=== PATIENT | female | born 1965 | race Caucasian/White ===

== ENCOUNTER → 2016-06-14 | Outpatient (CLI) | payer BC | END | disposition home or self-care (01) | LOC: LABWHC1 14:00 | PROVIDERS: ATTEND Internal Medicine Rheumatology | DX: M45.9 Ankylosing spondylitis of unspecified sites in spine (principal) | CPT/HCPCS: 36415; 85652; 86140 ==

== ENCOUNTER → 2018-06-07 | Outpatient (CLI) | payer BC ==
--- NOTE | 2018-06-07 16:39 | CT ---
"EXAMINATION TYPE: CT abdomen pelvis wo con DATE OF EXAM: 06/07/2018 COMPARISON: None INDICATION: Hematuria, nausea with vomiting DLP: 568.0 mGycm, Automated exposure control for dose reduction was used. CONTRAST: 0 mL of Isovue 300. Study performed without Oral Contrast TECHNIQUE: Axial images were obtained from above the diaphragm to the pubic rami in the axial plane a t 5 mm thick sections. Reconstructed images are reviewed on the computer in the coronal plane. FINDINGS: Limited CT sections are obtained the lung bases. The lung bases are clear. CT ABDOMEN: Liver: Normal Spleen: Normal Pancreas: Normal Adrenal glands: The adrenal glands are normal. Gallbladder: Normal Kidneys: No masses are evident. No hydronephrosis is present. There is a 4.6 there is mild right hy dronephrosis. Moderate right hydroureter is present. This extends to a mid right ureteral stone measu ring 0.5 cm. Cm cyst on the lateral mid left kidney measuring 16 Hounsfield units. No renal stones a re identified. Aorta: Vascular calcification is within the aorta. Inferior vena cava: Normal. CT PELVIS: Loops of bowel within the abdomen and pelvis are normal. Study is performed without oral contrast limiting bowel evaluation. Appendix: Normal as visualized in the midline. Urinary bladder: Unremarkable. Genitourinary structures: Uterus appears bulky. Adnexal regions appear clear. Small cyst on the right ovary may be present measuring 1.2 cm. Osseous structures: No suspicious lytic or sclerotic lesions. IMPRESSIONS: 1. Obstructing right mid ureteral stone measuring 0.5 cm. This is causing moderate right hydronephro sis. 2. Bulky uterus. Small right ovarian cyst may be present. 3. Left renal cyst. A Yellow level critical message alert has been initiated for Remi Gibson MD via the [employer] | Critical Results System on 06/07/2018 4:37 PM. This message alert has been sent to Remi Gibson MD via the preferences provided by the clinician for the receipt of Radiology Critical Findings. Oh ssage ID [id number]."
== END | disposition home or self-care (01) ==
LOC: RADCTMAIN 11:24
PROVIDERS: ATTEND Family Medicine
DX: N28.1 Cyst of kidney, acquired (principal); N83.201 Unspecified ovarian cyst, right side; N13.2 Hydronephrosis with renal and ureteral calculous obstruction; N85.2 Hypertrophy of uterus
CPT/HCPCS: 74176

== ENCOUNTER → 2018-06-09 | Outpatient (CLI) | payer BC ==
[2018-06-09 20:24] LABS: Anion Gap 7.8 mmol/L (4.00-12.00); Calcium 9.1 mg/dL (8.7-10.3); Carbon Dioxide 28.2 mmol/L (21.6-31.8); Potassium 3.7 mmol/L (3.5-5.5)
== END | disposition home or self-care (01) ==
LOC: LABWHC1 12:47
PROVIDERS: ATTEND Family Medicine
DX: N20.0 Calculus of kidney (principal)
CPT/HCPCS: 36415; 80048

== ENCOUNTER → 2018-06-13 | Outpatient (CLI) | payer BC ==
--- NOTE | 2018-06-13 12:29 | XR ---
Abdomen HISTORY: Right-sided kidney stone Frontal view the abdomen on [address] scan 06/07/2018 2 calcifications in the distribution of the proximal ureter present measuring approximately 3 to 4 mm similar to patient's CT scan findings. There is overlying bowel gas. No evident bowel obstruction. L monique bases not included on the exam. IMPRESSION: Proximal right ureteral calcifications are again noted in similar position.
== END ==
LOC: RADXRMAIN 10:09
PROVIDERS: ATTEND Urology
DX: N28.89 Other specified disorders of kidney and ureter (principal); N20.1 Calculus of ureter
CPT/HCPCS: 74018

== ENCOUNTER → 2018-06-14 | Outpatient (CLI) | payer BC ==
[2018-06-14 11:56] LABS: HCT 43.3 % (34.0-46.0); HGB 13.6 gm/dL (11.4-16.0); MCH 29.2 pg (25.0-35.0); MCHC 31.5 g/dL (31.0-37.0); MCV 92.8 fL (80.0-100.0); Mean Platelet Volume 7.6; Platelet Count 244 k/uL (150-450); RBC 4.67 m/uL (3.80-5.40); RDW 13.1 % (11.5-15.5); WBC 6.3 k/uL (3.8-10.6)
[2018-06-14 12:28] LABS: Basophils # (M) 0.06 k/uL (0-0.2); Eosinophils # (M) 0.44 k/uL (0-0.7); Lymphocytes # (M) 0.63 k/uL (1.0-4.8); Monocytes # (M) 1.01 k/uL (0-1.0); Neutrophils # (M) 4.16 k/uL (1.3-7.7); Neutrophils % (M) 66 %; Nucleated Red Blood Cells 0 /100 WBC (0-0); Total Cells Counted 100
[2018-06-15 03:30] LABS: Anion Gap 10.8 mmol/L (4.00-12.00); Calcium 9.2 mg/dL (8.7-10.3); Carbon Dioxide 28.2 mmol/L (21.6-31.8); Potassium 3.7 mmol/L (3.5-5.5)
== END | disposition home or self-care (01) ==
LOC: LABWHC1 10:51
PROVIDERS: ATTEND Urology
DX: N20.1 Calculus of ureter (principal)
CPT/HCPCS: 36415; 80048; 85025

== ENCOUNTER 2019-06-19 06:41 | Day surgery (SDC) | payer BC ==
[2019-06-18 10:10] VITALS: BMI 30.2
[~2019-06-19 06:41] MED LIST: LACTATED RINGERS 1,000 ML IV SCH; TOBRA-DEXAMET 0.3-0.1% OPHTH OINT 3.5 GM TUBE OPHTHALMIC ONE
[2019-06-19] MEDS: CYCLOPENTOLATE 1% OPHTH SOLN 2 ML BTL OP ONE ×3 (07:20→07:38)
[2019-06-19] MEDS: PHENYLEPHRINE 10% OPHTH DROPS 5 ML BTL OP ONE ×3 (07:23→07:41)
[2019-06-19 07:24] VITALS: TEMP 97.1
[2019-06-19] MEDS: KETOROLAC 0.5% OPHTH DROPS 5 ML BTL OP ONE ×3 (07:26→07:44)
[2019-06-19 07:40] LABS: Glucose,Whole Blood 95 mg/dL (75-99)
[2019-06-19] MEDS ORDERED: MIDAZOLAM 2 MG/2 ML VIAL ONE (08:07)
[2019-06-19] MEDS ORDERED: PROPOFOL 10 MG/ML 20 ML VIAL IV ONE (08:07)
[2019-06-19] MEDS ORDERED: BALANCED SALT IRRIG SOLN COMB2 15 ML IRRIG.SOLN INTRAOCULA ONE (08:16)
[2019-06-19] MEDS ORDERED: HYALURONATE SODIUM INTRAOCULAR 1 EACH SYRINGE (10MG/ML) INTRAOCULA ONE (08:16)
[2019-06-19] MEDS ORDERED: EPINEPHrine (PF) 0.5 ML in BALANCED SALT IRRIG SOLN COMB2 500 ML IRRIGATION ONE (08:17)
--- NOTE | 2019-06-19 08:33 | P.OP ---
Date of Procedure: 06/19/19 Procedure(s) Performed: PREOPERATIVE DIAGNOSIS: Cataract, right eye. POSTOPERATIVE DIAGNOSIS: Cataract, right eye. OPERATION: Phacoemulsification of cataract, intraocular lens placement, right eye. DESCRIPTION OF PROCEDURE: The patient was taken to the operating room. Intravenous Propofol was given so as to bring about sedation. The following mixture was given for local anesthesia: 5 mL of 2% lidocaine, 5 mL of 0.75% Marcaine, and 1 mL of Wydase. Approximately 4 mL was injected in the retrobu lbar space of the surgical eye. Additional 1 mL was then directed to the temporal area of the surgical eye. This was performed to allow adequate neurological block of the facial muscles. The patient was revived. The patient was prepped and draped in the usual sterile manner for the operative eye. A lid speculum was put into position. The conjunctiva was resected back from the limbus in the 12 o'clock position. Bleeding was controlled with electrocautery. A #69 blade was then used and a half-thickness scleral incision approximately 1-mm posterior to the limbus was made on bare sclera. This was shelved in the clear cornea using a crescent knife. Next a 15-degree blade was used to make a stab incision at the 3 o'clock position at the corneolimbal interface. A keratome blade was then used and the superior wound was extended into the anterior chamber. Viscoelastic was injected into the anterior chamber to maintain its form. A cystotome was used and a continuous anterior capsu lotomy was made. Hydrodissection of the lens cortex using a blunt cannula and BSS was performed. A phaco probe was then introduced and a groove extending from 12 to 6 o'clock in the lens was created. A Jer wand was used through the stab incision and used to perform a divide and conquer dismantling of the cataract. An irrigation aspiration probe was utilized and any residual cortex was removed from the eye. Again, viscoelastic was injected into the anterior chamber. An Ryland posterior chamber lens implant was placed in a delivery cartridge and injected into the anterior chamber. A Sinskey hook was utilized to spin the lens into position within the capsular bag. The irrigation and aspiration probe was again introduced and any residual viscoelastic was removed from the eye. BSS was injected via blunt canula into the limbal stab incision and the anterior chamber was re-inflated. The conjunctiva was reapproximated using electrocautery. One drop of 0.25% Timoptic was placed over the corneal along with an antibiotic ophthalmic ointment. Two sterile patches and a Dewey eye shield were taped into position. The patient was transported to the recovery room in stable condition. Pathology: none sent Condition: stable Disposition: same day
[2019-06-19 09:09] VITALS: RESP 16
[2019-06-19 09:10] VITALS: BP 107/70; PULSE 71
[2019-06-19] MEDS ORDERED: BUPIVACAINE (PF) 0.75% 5 ML, HYALURONIDASE, HUMAN RECOMB 150 UNIT, LIDOCAINE 2% (PF) 10... MISCELLANE ONE ×3 (23:00)
[2019-06-19] MEDS ORDERED: TIMOLOL 0.5% OPHTH DROPS 5 ML BTL OP ONE (23:00)
[2019-06-19] MEDS ORDERED: GENTAMICIN/PREDNISOL AC OPHTH OINT 3.5GM OPHTHALMIC ONE (23:00)
== END 2019-06-19 09:32 | disposition home or self-care (01) ==
LOC: OR 06:41
PROVIDERS: ATTEND Ophthalmology
DX: H25.043 Posterior subcapsular polar age-related cataract, bilateral (principal); M06.9 Rheumatoid arthritis, unspecified; M45.9 Ankylosing spondylitis of unspecified sites in spine; K51.90 Ulcerative colitis, unspecified, without complications; Z87.891 Personal history of nicotine dependence; Z79.52 Long term (current) use of systemic steroids; Z79.899 Other long term (current) drug therapy; Z98.891 History of uterine scar from previous surgery; Z83.3 Family history of diabetes mellitus; Z82.49 Family history of ischemic heart disease and other diseases of the circulatory system; Z80.9 Family history of malignant neoplasm, unspecified
CPT/HCPCS: 81025; 66984; V2632; J2250; J3470; J2001; J0171; J2704

== ENCOUNTER → 2019-10-17 | Outpatient (CLI) | payer BC ==
[2019-10-17 13:51] LABS: Basophils % (A) 1 %; Eosinophils # (A) 0.1 k/uL (0-0.7); Eosinophils % (A) 2 %; HCT 42.6 % (34.0-46.0); HGB 14.1 gm/dL (11.4-16.0); Lymphocytes # (A) 0.9 k/uL (1.0-4.8); Lymphocytes % (A) 12 %; MCV 90.8 fL (80.0-100.0); Mean Platelet Volume 7.8; Monocytes # (A) 0.6 k/uL (0-1.0); Monocytes % (A) 7 %; Neutrophils # (A) 5.8 k/uL (1.3-7.7); Neutrophils % (A) 75 %; Platelet Count 247 k/uL (150-450); RBC 4.69 m/uL (3.80-5.40); RDW 12.8 % (11.5-15.5); WBC 7.8 k/uL (3.8-10.6)
[2019-10-17 20:57] LABS: African American GFR (CKD) 116.3 (60.0-200.0); Albumin 4.1 g/dL (3.80-4.90); Albumin/Globulin Ratio 1.71 (1.60-3.17); Anion Gap 8.1 mmol/L (4.00-12.00); BUN/Creat Ratio 31.43 Ratio (12.00-20.00); Calcium 8.8 mg/dL (8.7-10.3); Carbon Dioxide 29.9 mmol/L (21.6-31.8); Globulin 2.4 g/dL (1.6-3.3); Non-African American GFR(CKD) 100.3 (60.0-200.0); Potassium 4.3 mmol/L (3.5-5.5); Total Bilirubin 0.4 mg/dL (0.2-1.2); Total Protein 6.5 g/dL (6.2-8.2)
== END | disposition home or self-care (01) ==
LOC: LABWHC1 12:13
PROVIDERS: ATTEND Specialist
DX: Z51.81 Encounter for therapeutic drug level monitoring (principal); Z79.899 Other long term (current) drug therapy
CPT/HCPCS: 36415; 80053; 85025

== ENCOUNTER → 2020-01-14 | Outpatient (CLI) | payer BC ==
--- NOTE | 2020-01-14 09:59 | US ---
EXAMINATION TYPE: US abdomen complete DATE OF EXAM: 01/14/2020 COMPARISON: 06/07/2028 CT scan CLINICAL HISTORY: 54-year-old female R10.33 PERIUMBILICAL PAIN. Generalized pain. NPO. TECHNIQUE: Multiple sonographic images of the abdomen are obtained. FINDINGS: EXAM MEASUREMENTS: Liver Length: 16.5 cm Gallbladder Wall: 0.2 cm CBD: 0.3 cm Spleen: 11.1 cm Right Kidney: 11.2 x 5.8 x 4.7 cm Left Kidney: 11.5 x 5.1 x 4.8 cm Pancreas: wnl Liver: wnl Gallbladder: wnl Evidence for sonographic Gongora's sign: neg CBD: wnl Spleen: wnl Right Kidney: wnl, no hydronephrosis. Left Kidney: lateral cystic appearing lesion seen - 5.7 x 5.8 x 5.5 cm as present on prior CT. No hy dronephrosis. Upper IVC: wnl Abd Aorta: No AAA visualized. Mild atherosclerotic irregularity mid and distally. IMPRESSION: 1. Benign 5.8 cm left lateral renal cyst. 2. Otherwise, no specific sonographic abnormality of the abdomen.
== END | disposition home or self-care (01) ==
LOC: RADUSWWP 08:38
PROVIDERS: ATTEND Internal Medicine Gastroenterology
DX: N28.1 Cyst of kidney, acquired (principal)
CPT/HCPCS: 76700

== ENCOUNTER → 2020-02-18 | Outpatient (CLI) | payer BC ==
[2020-02-18 18:48] LABS: Estradiol 44.8 pg/mL
== END | disposition home or self-care (01) ==
LOC: LABWHC1 09:55
PROVIDERS: ATTEND Obstetrics & Gynecology
DX: N95.1 Menopausal and female climacteric states (principal); R53.83 Other fatigue
CPT/HCPCS: 36415; 82670; 83001; 84144; 84403

== ENCOUNTER → 2020-04-08 | Outpatient (CLI) | payer MEDICARE ==
[2020-04-08 12:24] LABS: Basophils # (A) 0.1 k/uL (0-0.2); Basophils % (A) 1 %; Eosinophils # (A) 0.2 k/uL (0-0.7); Eosinophils % (A) 2 %; HCT 43.4 % (34.0-46.0); HGB 14.2 gm/dL (11.4-16.0); Lymphocytes # (A) 0.8 k/uL (1.0-4.8); Lymphocytes % (A) 8 %; MCH 29.2 pg (25.0-35.0); MCHC 32.6 g/dL (31.0-37.0); MCV 89.3 fL (80.0-100.0); Mean Platelet Volume 7.3; Monocytes % (A) 9 %; Neutrophils # (A) 8.1 k/uL (1.3-7.7); Neutrophils % (A) 76 %; Platelet Count 263 k/uL (150-450); RBC 4.86 m/uL (3.80-5.40); RDW 13.4 % (11.5-15.5); WBC 10.6 k/uL (3.8-10.6)
[2020-04-08 21:37] LABS: African American GFR (CKD) 115.5 (60.0-200.0); Non-African American GFR(CKD) 99.6 (60.0-200.0)
== END | disposition home or self-care (01) ==
LOC: LABWHC1 11:15
PROVIDERS: ATTEND Specialist
DX: Z51.81 Encounter for therapeutic drug level monitoring (principal); Z79.899 Other long term (current) drug therapy
CPT/HCPCS: 36415; 82565; 84450; 84460; 84520; 85025

== ENCOUNTER → 2020-05-29 | Outpatient (CLI) | payer MEDICARE ==
[2020-05-29 19:54] LABS: Basophils # (A) 0.06 X 10*3/uL (0.00-0.10); Basophils % (A) 0.9 %; Eosinophils # (A) 0.19 X 10*3/uL (0.04-0.35); HCT 44.6 % (37.2-46.3); HGB 13.9 g/dL (12.0-15.0); Lymphocytes # (A) 1.38 X 10*3/uL (0.90-5.00); Lymphocytes % (A) 21.7 %; MCH 28.7 pg (27.0-32.0); MCHC 31.2 g/dL (32.0-37.0); Mean Platelet Volume 11.8 fL (9.5-12.2); Monocytes # (A) 0.83 X 10*3/uL (0.20-1.00); Neutrophils % (A) 61.2 %; Platelet Count 244 X 10*3/uL (140-440); RBC 4.85 X 10*6/uL (4.10-5.20); RDW 14.7 % (11.5-14.5); WBC 6.37 X 10*3/uL (4.50-10.00)
[2020-05-30 00:18] LABS: African American GFR (CKD) 98.2 (60.0-200.0); Albumin 4.1 g/dL (3.80-4.90); Albumin/Globulin Ratio 1.37 (1.60-3.17); BUN/Creat Ratio 26.25 Ratio (12.00-20.00); Calcium 9.6 mg/dL (8.7-10.3); Non-African American GFR(CKD) 84.8 (60.0-200.0); Potassium 4.1 mmol/L (3.5-5.5); Total Bilirubin 0.5 mg/dL (0.3-1.2); Total Protein 7.1 g/dL (6.2-8.2)
== END | disposition home or self-care (01) ==
LOC: LABWHC1 11:10
PROVIDERS: ATTEND Specialist
DX: M12.80 Other specific arthropathies, not elsewhere classified, unspecified site (principal); Z79.899 Other long term (current) drug therapy
CPT/HCPCS: 36415; 80053; 85025

== ENCOUNTER → 2020-10-21 | Outpatient (CLI) | payer MEDICARE ==
[2020-10-21 19:26] LABS: Basophils # (A) 0.06 X 10*3/uL (0.00-0.10); Basophils % (A) 0.9 %; Eosinophils # (A) 0.17 X 10*3/uL (0.04-0.35); Eosinophils % (A) 2.5 %; HCT 42.9 % (37.2-46.3); HGB 13.6 g/dL (12.0-15.0); Lymphocytes % (A) 24.8 %; MCH 29.6 pg (27.0-32.0); MCHC 31.7 g/dL (32.0-37.0); MCV 93.5 fL (80.0-97.0); Monocytes # (A) 0.67 X 10*3/uL (0.20-1.00); Monocytes % (A) 9.8 %; Neutrophils # (A) 4.24 X 10*3/uL (1.80-7.70); Neutrophils % (A) 61.7 %; Platelet Count 247 X 10*3/uL (140-440); RBC 4.59 X 10*6/uL (4.10-5.20); RDW 13.5 % (11.5-14.5); WBC 6.86 X 10*3/uL (4.50-10.00)
[2020-10-22 01:12] LABS: African American GFR (CKD) 98.2 (60.0-200.0); Non-African American GFR(CKD) 84.8 (60.0-200.0)
== END | disposition home or self-care (01) ==
LOC: LABWHC1 11:10
PROVIDERS: ATTEND Specialist
DX: Z79.899 Other long term (current) drug therapy (principal)
CPT/HCPCS: 36415; 82565; 84450; 84460; 84520; 85025

== ENCOUNTER → 2021-02-17 | Outpatient (CLI) | payer MEDICARE ==
[2021-02-17 15:16] LABS: Basophils # (A) 0.06 X 10*3/uL (0.00-0.10); Eosinophils # (A) 0.19 X 10*3/uL (0.04-0.35); Eosinophils % (A) 3.2 %; HCT 41.5 % (37.2-46.3); HGB 13.4 g/dL (12.0-15.0); Lymphocytes % (A) 25.3 %; MCH 30.1 pg (27.0-32.0); MCHC 32.3 g/dL (32.0-37.0); MCV 93.3 fL (80.0-97.0); Mean Platelet Volume 11.2 fL (9.5-12.2); Monocytes # (A) 0.76 X 10*3/uL (0.20-1.00); Monocytes % (A) 12.8 %; Neutrophils # (A) 3.41 X 10*3/uL (1.80-7.70); Neutrophils % (A) 57.5 %; Platelet Count 261 X 10*3/uL (140-440); RBC 4.45 X 10*6/uL (4.10-5.20); RDW 13.1 % (11.5-14.5); WBC 5.93 X 10*3/uL (4.50-10.00)
[2021-02-17 18:35] LABS: African American GFR (CKD) 120.6 (60.0-200.0); Blood Urea Nitrogen 21.1 mg/dL (9.0-27.0); Non-African American GFR(CKD) 104.1 (60.0-200.0)
== END | disposition home or self-care (01) ==
LOC: LABWHC1 09:54
PROVIDERS: ATTEND Specialist
DX: Z79.899 Other long term (current) drug therapy (principal)
CPT/HCPCS: 36415; 82565; 84450; 84460; 84520; 85025

== ENCOUNTER → 2021-03-05 | Outpatient (CLI) | payer MEDICARE ==
[2021-03-05 19:41] LABS: Hepatitis B Core IgM Nonreactive (Nonreactive); Hepatitis B Surface AB- Quant 3.5 mIU/mL; Hepatitis B Surface Antibody Nonreactive (Nonreactive); Hepatitis B Surface Antigen Nonreactive (Nonreactive); Hepatitis C IgG Antibody Nonreactive (Nonreactive)
[2021-03-05 19:46] LABS: Basophils # (A) 0.07 X 10*3/uL (0.00-0.10); Eosinophils # (A) 0.18 X 10*3/uL (0.04-0.35); Eosinophils % (A) 2.6 %; HGB 13.5 g/dL (12.0-15.0); Lymphocytes # (A) 1.81 X 10*3/uL (0.90-5.00); Lymphocytes % (A) 26.5 %; MCH 29.3 pg (27.0-32.0); MCHC 31.4 g/dL (32.0-37.0); MCV 93.5 fL (80.0-97.0); Monocytes # (A) 0.71 X 10*3/uL (0.20-1.00); Monocytes % (A) 10.4 %; Neutrophils # (A) 4.05 X 10*3/uL (1.80-7.70); Neutrophils % (A) 59.2 %; Platelet Count 254 X 10*3/uL (140-440); RDW 13.4 % (11.5-14.5); WBC 6.84 X 10*3/uL (4.50-10.00)
[2021-03-05 19:49] LABS: ALT 20 U/L (8-44); AST 22 U/L (13-35); African American GFR (CKD) 114.6 (60.0-200.0); Albumin 4.5 g/dL (3.8-4.9); Albumin/Globulin Ratio 2.05 (1.60-3.17); Alkaline Phosphatase 63 U/L (41-126); BUN/Creat Ratio 23.57 Ratio (12.00-20.00); Blood Urea Nitrogen 16.5 mg/dL (9.0-27.0); Calcium 8.7 mg/dL (8.7-10.3); Carbon Dioxide 26.2 mmol/L (20.0-27.5); Chloride 105 mmol/L (96-109); Globulin 2.2 g/dL (1.6-3.3); Glucose 95 mg/dL (70-110); Non-African American GFR(CKD) 98.9 (60.0-200.0); Potassium 3.7 mmol/L (3.5-5.5); Sodium 143 mmol/L (135-145); Total Protein 6.7 g/dL (6.2-8.2)
[2021-03-05 20:41] LABS: C Reactive Protein <0.30 mg/dL (0.00-0.80)
[2021-03-05 23:01] LABS: Erythrocyte Sedimentation Rate 6 mm/Hr (0-30)
== END | disposition home or self-care (01) ==
LOC: LABWHC1 11:05
PROVIDERS: ATTEND Specialist
DX: Z79.899 Other long term (current) drug therapy (principal)
CPT/HCPCS: 36415; 80053; 85025; 85652; 86140; 86480; 86704; 86705; 86706; 86803; 87340

== ENCOUNTER → 2021-06-03 | Outpatient (CLI) | payer MEDICARE ==
[2021-06-03 15:00] LABS: Basophils # (A) 0.08 X 10*3/uL (0.00-0.10); Basophils % (A) 1.1 %; Eosinophils # (A) 0.13 X 10*3/uL (0.04-0.35); Eosinophils % (A) 1.8 %; HCT 42.7 % (37.2-46.3); HGB 13.4 g/dL (12.0-15.0); Immature Grans, Automated 0.3 %; Lymphocytes # (A) 0.93 X 10*3/uL (0.90-5.00); Lymphocytes % (A) 12.6 %; MCH 29.6 pg (27.0-32.0); MCHC 31.4 g/dL (32.0-37.0); MCV 94.3 fL (80.0-97.0); Mean Platelet Volume 11.3 fL (9.5-12.2); Monocytes # (A) 0.52 X 10*3/uL (0.20-1.00); NRBC Per 100 WBC 0 /100 WBCS (0.0-0.0); Neutrophils # (A) 5.73 X 10*3/uL (1.80-7.70); Neutrophils % (A) 77.2 %; Platelet Count 262 X 10*3/uL (140-440); RBC 4.53 X 10*6/uL (4.10-5.20); WBC 7.41 X 10*3/uL (4.50-10.00)
[2021-06-03 15:07] LABS: African American GFR (CKD) 114.6 (60.0-200.0); Blood Urea Nitrogen 18.4 mg/dL (9.0-27.0); Non-African American GFR(CKD) 98.9 (60.0-200.0)
== END | disposition home or self-care (01) ==
LOC: LABWHC1 10:33
PROVIDERS: ATTEND Specialist
DX: Z79.899 Other long term (current) drug therapy (principal)
CPT/HCPCS: 36415; 82565; 84450; 84460; 84520; 85025

== ENCOUNTER → 2021-06-16 | Outpatient (CLI) | payer MEDICARE ==
[2021-06-17 05:29] LABS: Anti-Smith Ab Interp NEGATIVE (NEGATIVE); DNA Double-Stranded NEGATIVE (NEGATIVE); Scleroderma SC-70 Ab <0.2 AI
== END | disposition home or self-care (01) ==
LOC: LABWHC1 14:53
PROVIDERS: ATTEND Specialist
DX: M12.80 Other specific arthropathies, not elsewhere classified, unspecified site (principal)
CPT/HCPCS: 36415; 86038; 86160; 86225; 86235

== ENCOUNTER → 2021-10-07 | Outpatient (CLI) | payer MEDICARE ==
[2021-10-07 19:41] LABS: Cyclic Citrull Pep IgG Unit <0.5 U/mL; Cyclic Citrullinated Pep IgG NEGATIVE (NEGATIVE)
[2021-10-07 21:21] LABS: Anti-Smith Ab Interp NEGATIVE (NEGATIVE); DNA Double-Stranded NEGATIVE (NEGATIVE); Scleroderma SC-70 Ab <0.2 AI
== END | disposition home or self-care (01) ==
LOC: LABWHC1 14:07
PROVIDERS: ATTEND Specialist
DX: M12.80 Other specific arthropathies, not elsewhere classified, unspecified site (principal); R76.8 Other specified abnormal immunological findings in serum
CPT/HCPCS: 36415; 83516; 86038; 86160; 86200; 86225; 86235; 86480

== ENCOUNTER → 2021-12-21 | Outpatient (CLI) | payer MEDICARE ==
[2021-12-21 18:08] LABS: Basophils # (A) 0.05 X 10*3/uL (0.00-0.10); Basophils % (A) 0.7 %; Eosinophils # (A) 0.29 X 10*3/uL (0.04-0.35); Eosinophils % (A) 4.3 %; HCT 41.2 % (37.2-46.3); HGB 13.3 g/dL (12.0-15.0); Immature Grans, Automated 0.3 %; Lymphocytes # (A) 1.38 X 10*3/uL (0.90-5.00); Lymphocytes % (A) 20.6 %; MCH 29.4 pg (27.0-32.0); MCHC 32.3 g/dL (32.0-37.0); MCV 91.2 fL (80.0-97.0); Mean Platelet Volume 11.5 fL (9.5-12.2); Monocytes # (A) 0.56 X 10*3/uL (0.20-1.00); Monocytes % (A) 8.4 %; NRBC Per 100 WBC 0 /100 WBCS (0.0-0.0); Neutrophils # (A) 4.39 X 10*3/uL (1.80-7.70); Neutrophils % (A) 65.7 %; Platelet Count 264 X 10*3/uL (140-440); RBC 4.52 X 10*6/uL (4.10-5.20); RDW 13.4 % (11.5-14.5); WBC 6.69 X 10*3/uL (4.50-10.00)
[2021-12-21 18:22] LABS: ALT 14 U/L (8-44); AST 19 U/L (13-35); African American GFR (CKD) 114.9 (60.0-200.0); BUN/Creat Ratio 14.16 Ratio (12.00-20.00); Blood Urea Nitrogen 9.6 mg/dL (9.0-27.0); Calcium 9.5 mg/dL (8.7-10.3); Carbon Dioxide 29.5 mmol/L (20.0-27.5); Chloride 105 mmol/L (96-109); Chol/HDL Ratio 3.39 Ratio; Glucose 99 mg/dL (70-110); LDL Cholesterol,Calculated 128.1 mg/dL (0.0-131.0); Non-African American GFR(CKD) 99.1 (60.0-200.0); Potassium 4.3 mmol/L (3.5-5.5); Sodium 145 mmol/L (135-145); VLDL Calculation 17.84 mg/dL (5.00-40.00)
[2021-12-21 22:29] LABS: Appearance,Urine Clear (Clear); Bilirubin,Urine Negative (Negative); Blood,Urine Negative (Negative); Color,Urine Yellow (Yellow); Ketones,Urine Trace mg/dL (Negative); Nitrite,Urine Negative (Negative); PH, Urine 6.5 (5.0-8.0); Specific Gravity,Urine 1.016 (1.001-1.030); Urobilinogen,Urine 0.2 (0.2,1.0)
[2021-12-21 22:34] LABS: Bacteria,Urine Trace /HPF (None Seen)
== END | disposition home or self-care (01) ==
LOC: LABPAT 11:10
PROVIDERS: ATTEND Urology
DX: Z01.812 Encounter for preprocedural laboratory examination (principal); E78.2 Mixed hyperlipidemia; N20.0 Calculus of kidney
CPT/HCPCS: 80048; 80061; 81001; 84443; 84450; 84460; 85025; 87086

== ENCOUNTER 2022-01-08 12:04 | Day surgery (SDC) | payer MEDICARE ==
[2022-01-06 15:19] VITALS: BMI 30.6
--- NOTE | 2022-01-08 10:47 | P.HPIHPCON ---
History of Present Illness H&P Date: 01/08/22 Chief Complaint: Right-sided renal stone This is a 56-year-old female history of a 1.2 cm right-sided renal pelvis stone, she is symptomatic from her stone. Discussed with her the option of a ESWL versus ureteroscopy with holmium laser. Risk and benefit of each approach was discussed in detail. She agreed to proceed with right-sided ureteroscopy with holmium laser. Discussed with her the risk which include but not limited to bleeding, infection, ureteral injury. Discussed also risks of anesthesia. she understood all the risk and agreed to proceed Consent for Procedure: I have explained the operation/procedure to the patient, including the risks, benefits, side effects, alternative therapies (including not receiving the proposed treatment or service), the likelihood of the patient achieving his/her goals, and potential recuperation problems for the procedure/sedation/analgesia, as well as any blood products, if indicated. I also explained to the patient the risks, benefits and side effects of the alternatives, as well as the risks related to not receiving the proposed procedure, care, treatment, or services. Past Medical History Past Medical History: Fibromyalgia, Hyperlipidemia Additional Past Medical History / Comment(s): 2 herniated disks in neck, hx. migraines, ulcerative colitis , ankylosing spondylitis, hx kidney stones,"heart palpiations" History of Any Multi-Drug Resistant Organisms: None Reported Past Surgical History: Section, Orthopedic Surgery, Tubal Ligation Additional Past Surgical History / Comment(s): bal knee arthroscopy, surgery to remove kidney stones Past Anesthesia/Blood Transfusion Reactions: Previous Problems w/ Anesthesia Additional Past Anesthesia/Blood Transfusion Reaction / Comment(s): had spinal with C/S and could feel everything and ended needing a general Smoking Status: Former smoker - Past Family History Mother Family Medical History: Cancer Medications and Allergies Home Medications Medication Instructions Recorded Confirmed Type Adalimumab [Humira] 40 mg SQ FR 05/18/19 01/06/22 History Mesalamine [Lialda] 4.8 gm PO AC-SUPPER 05/18/19 01/06/22 History DULoxetine HCL [Cymbalta] 30 mg PO BID 06/18/19 01/06/22 History Gabapentin [Neurontin] 300 mg PO HS 06/18/19 01/06/22 History Leflunomide [Arava] 20 mg PO DAILY 06/18/19 01/06/22 History cycloSPORINE 0.05% OPHTH SOLN 1 applicator BOTH EYES Q12H 06/18/19 01/06/22 History [Restasis] ALPRAZolam [Xanax] 0.5 mg PO BID PRN 01/06/22 01/06/22 History Black Cohash Tab 80 mg PO QAM 01/06/22 01/06/22 History Metoprolol Succinate (ER) [Toprol 25 mg PO DAILY 01/06/22 01/06/22 History Xl] Allergies Allergy/AdvReac Type Severity Reaction Status Date / Time bupropion HCl Allergy Rash/Hives Verified 01/06/22 15:05 [From Wellbutrin] Assessment and Plan Assessment: Or for right-sided ureteroscopy with holmium laser lithotripsy, stone basketing and stent insertion
[~2022-01-08 12:04] MED LIST changes: +DEXAMETHASONE SOD PHOSPHATE 4 MG/ML 1 ML VIAL IV ONE; +HYDROmorphone 0.5 MG/0.5 ML SYRINGE IVP PRN; +LIDOCAINE 1% (10MG/ML) FOR IV START INTRADERMA PRN; +ONDANSETRON 4 MG/2 ML VIAL IVP ONE; +SCOPOLAMINE 1 MG/72 HR PATCH TRANSDERM ONE; -TOBRA-DEXAMET 0.3-0.1% OPHTH OINT 3.5 GM TUBE OPHTHALMIC ONE
--- NOTE | 2022-01-08 12:20 | XR ---
EXAMINATION TYPE: XR KUB DATE OF EXAM: 01/08/2022 COMPARISON: NONE HISTORY: Pain TECHNIQUE: One view abdominal series FINDINGS: The osseous structures are intact. The bowel gas pattern is nonspecific. There is a 1.3 cm right tiffanie al calculus. Left kidney is limited by bowel content but no obvious calcifications.. IMPRESSION: 1. There is a 1.3 cm right renal calculus.
[2022-01-08] MEDS ORDERED: LIDOCAINE 2% INJ 20 MG/ML (2 ML VIAL) ONE (15:00)
[2022-01-08] MEDS ORDERED: fentaNYL (PF) 50 MCG/ML 2 ML AMP ONE (15:00)
[2022-01-08] MEDS ORDERED: MIDAZOLAM 2 MG/2 ML VIAL ONE (15:00)
[2022-01-08] MEDS ORDERED: PROPOFOL 10 MG/ML 20 ML VIAL IV ONE (15:00)
[2022-01-08 16:36] VITALS: TEMP 96.8
--- NOTE | 2022-01-08 17:01 | P.OP ---
Date of Procedure: 01/08/22 Preoperative Diagnosis: Right renal stone Postoperative Diagnosis: Same Procedure(s) Performed: Cystoscopy, right ureteroscopy, holmium laser lithotripsy, stone basketing and stent insertion Implants: 6-Ghanaian by 22 cm stent in the right ureter Anesthesia: MONA Surgeon: Axel Medrano Estimated Blood Loss (ml): 5 Pathology: other (Right renal stone) Condition: stable Disposition: PACU Indications for Procedure: This is a 56-year-old female history of a 1.2 cm right-sided renal pelvis stone, she is symptomatic from her stone. Discussed with her the option of a ESWL versus ureteroscopy with holmium laser. Risk and benefit of each approach was discussed in detail. She agreed to proceed with right-sided ureteroscopy with holmium laser. Discussed with her the risk which include but not limited to bleeding, infection, ureteral injury. Discussed also risks of anesthesia. she understood all the risk and agreed to proceed Operative Findings: Large stone in the right renal pelvis Description of Procedure: Patient brought to the operating room, general anesthesia was induced. She was prepped and draped so fashion a placement dorsal lithotomy position. Cystoscopy fitted with a 21-Ghanaian sheath was inserted per urethra, cystoscopy was performed which showed no abnormality within the bladder. Attention was then carried to the right ureteral orifice which was intubated with a sensor wire. Next under fluoroscopy 1113 Ghanaian access sheath was passed over the wire and into the proximal ureter. The flexible ureteroscope was inserted through the access sheath, renoscopy was performed which showed a large stone in the renal pelvis. Using the holmium laser the stone was dusted, sizable fragments were removed and sent for analysis. Repeat renoscopy showed no sizable stone or injury to the kidney. Pullback ureteroscopy was performed which showed no injury to the ureter and ureteral fragments. As the ureteroscope was withdrawn, a sensor wire was advanced through. Next a ureteral stent was passed over the wire, the proximal curl was visualized on fluoroscopy and the distal curl was visualized using the cystoscope. The bladder was emptied at the end of the case. Patient tolerated the procedure well was taken to recovery in stable condition
[2022-01-08 17:37] VITALS: PULSE 99; RESP 16
[2022-01-08 17:49] VITALS: BP 144/78
--- NOTE | 2022-01-09 09:55 | FL ---
Intraoperative/procedural fluoroscopic services were provided. Total fluoroscopy time is 26 seconds w ith a total of 1 submitted images to PACS. Please see the operative/procedural note for further detai ls.
== END 2022-01-08 18:13 | disposition home or self-care (01) ==
LOC: OR 12:04
PROVIDERS: ATTEND Urology
DX: N20.0 Calculus of kidney (principal); E78.5 Hyperlipidemia, unspecified; M79.7 Fibromyalgia; Z87.891 Personal history of nicotine dependence; Z88.8 Allergy status to other drugs, medicaments and biological substances; Z79.890 Hormone replacement therapy; Z79.899 Other long term (current) drug therapy; Z87.19 Personal history of other diseases of the digestive system
CPT/HCPCS: 52356; 82365; 74018; C2625; C1769; J2250; J1100; J0690; J2405; J3010; J2704; J2001

== ENCOUNTER → 2022-03-19 | Outpatient (CLI) | payer MEDICARE ==
[2022-03-19 18:51] LABS: Basophils # (A) 0.08 X 10*3/uL (0.00-0.10); Basophils % (A) 0.9 %; Eosinophils # (A) 0.14 X 10*3/uL (0.04-0.35); Eosinophils % (A) 1.6 %; HCT 45.9 % (37.2-46.3); Immature Grans, Automated 0.6 %; Lymphocytes # (A) 1.39 X 10*3/uL (0.90-5.00); Lymphocytes % (A) 15.6 %; MCH 28.1 pg (27.0-32.0); MCHC 30.5 g/dL (32.0-37.0); Mean Platelet Volume 10.5 fL (9.5-12.2); Monocytes % (A) 6.7 %; NRBC Per 100 WBC 0 /100 WBCS (0.0-0.0); Neutrophils # (A) 6.65 X 10*3/uL (1.80-7.70); Neutrophils % (A) 74.6 %; Platelet Count 303 X 10*3/uL (140-440); RBC 4.99 X 10*6/uL (4.10-5.20); RDW 13.9 % (11.5-14.5); WBC 8.91 X 10*3/uL (4.50-10.00)
[2022-03-19 19:09] LABS: African American GFR (CKD) 90.2 (60.0-200.0); Non-African American GFR(CKD) 77.8 (60.0-200.0)
== END | disposition home or self-care (01) ==
LOC: LABWHC1 10:37
PROVIDERS: ATTEND Specialist
DX: Z79.899 Other long term (current) drug therapy (principal)
CPT/HCPCS: 36415; 82565; 84450; 84460; 84520; 85025

== ENCOUNTER → 2023-08-10 | Outpatient (CLI) | payer MEDICARE ==
[2023-08-10 19:01] LABS: Basophils # (A) 0.08 X 10*3/uL (0.00-0.10); Basophils % (A) 0.9 %; Eosinophils # (A) 0.11 X 10*3/uL (0.04-0.35); Eosinophils % (A) 1.2 %; HCT 45.4 % (37.2-46.3); HGB 15.1 g/dL (12.0-15.0); Lymphocytes # (A) 2.22 X 10*3/uL (0.90-5.00); MCH 30.8 pg (27.0-32.0); MCHC 33.3 g/dL (32.0-37.0); MCV 92.7 FL (80.0-97.0); Mean Platelet Volume 11.2 FL (9.5-12.2); Monocytes # (A) 0.71 X 10*3/uL (0.20-1.00); NRBC Per 100 WBC 0 X 10*3/uL (0.00-0.01); Neutrophils # (A) 5.74 X 10*3/uL (1.80-7.70); Neutrophils % (A) 64.7 %; Platelet Count 277 X 10*3/uL (140-440); RDW 13.2 % (11.5-14.5); WBC 8.88 X 10*3/uL (4.50-10.00)
[2023-08-10 19:22] LABS: ALT 11 U/L (8-44); AST 18 U/L (13-35); Blood Urea Nitrogen 20.5 mg/dL (9.0-27.0)
== END | disposition home or self-care (01) ==
LOC: LABWHC1 15:52
PROVIDERS: ATTEND Specialist
DX: Z51.81 Encounter for therapeutic drug level monitoring (principal); Z79.899 Other long term (current) drug therapy
CPT/HCPCS: 36415; 82565; 84450; 84460; 84520; 85025; 86480

== ENCOUNTER 2023-08-19 11:22 | Emergency (ER) | payer MEDICARE ==
[2023-08-19 11:29] VITALS: RESP 18
--- NOTE | 2023-08-19 11:37 | ED ---
Lower Extremity Injury HPI - General Chief Complaint: Extremity Injury, Lower Stated Complaint: Fall-L knee injury Time Seen by Provider: 08/19/23 11:35 Source: patient, RN notes reviewed Mode of arrival: ambulatory Limitations: no limitations - History of Present Illness Initial Comments: 57-year-old female presented to the ER with a chief complaint of left knee injury. Patient reports yesterday she was attempting to pull a command strip off of the wall. She states she was on a ladder approximately 3 feet off the ground. She states the strip pulled father at the unexpected and she accidentally fell. She states that her left knee "buckled forward". She denies any head injury, loss consciousness or blood thinner use. Denies any other injuries. She has been taking [id number] ibuprofen without relief. She states has been extremely painful to walk and her knee is swollen. Other complaints at this time. - Related Data Home Medications Medication Instructions Recorded Confirmed Adalimumab [Humira] 40 mg SQ FR 05/18/19 01/08/22 Mesalamine [Lialda] 4.8 gm PO AC-SUPPER 05/18/19 01/08/22 DULoxetine HCL [Cymbalta] 30 mg PO BID 06/18/19 01/08/22 Gabapentin [Neurontin] 300 mg PO HS 06/18/19 01/08/22 Leflunomide [Arava] 20 mg PO DAILY 06/18/19 01/08/22 cycloSPORINE 0.05% OPHTH SOLN 1 applicator BOTH EYES Q12H 06/18/19 01/08/22 [Restasis] ALPRAZolam [Xanax] 0.5 mg PO BID PRN 01/06/22 01/08/22 Black Cohash Tab 80 mg PO QAM 01/06/22 01/08/22 Metoprolol Succinate (ER) [Toprol 25 mg PO DAILY 01/06/22 01/08/22 Xl] Previous Rx's Medication Instructions Recorded Cephalexin [Keflex] 500 mg PO Q8HR #15 cap 01/08/22 Ketorolac [Toradol] 10 mg PO Q6HR PRN #15 tab 01/08/22 Acetaminophen-Codeine 300-30mg 1 tab PO Q4H PRN #20 tablet 08/19/23 [Tylenol #3] Allergies Allergy/AdvReac Type Severity Reaction Status Date / Time bupropion HCl Allergy Rash/Hives Verified 08/19/23 11:26 [From Wellbutrin] Review of Systems ROS Statement: Those systems with pertinent positive or pertinent negative responses have been documented in the HPI. ROS Other: All systems not noted in ROS Statement are negative. Past Medical History Past Medical History: Fibromyalgia, Hyperlipidemia, Osteoarthritis (OA) Additional Past Medical History / Comment(s): 2 herniated disks in neck, hx. migraines, ulcerative colitis , ankylosing spondylitis, hx kidney stones, History of Any Multi-Drug Resistant Organisms: None Reported Past Surgical History: Section, Orthopedic Surgery, Tubal Ligation Additional Past Surgical History / Comment(s): rt knee surgery, left knee arthroscopy, surgery to remove kidney stones Past Anesthesia/Blood Transfusion Reactions: No Reported Reaction Additional Past Anesthesia/Blood Transfusion Reaction / Comment(s): had spinal with C/S and could feel everything and ended needing a general Past Psychological History: No Psychological Hx Reported Smoking Status: Former smoker Past Alcohol Use History: None Reported Past Drug Use History: None Reported - Past Family History Mother Family Medical History: Cancer General Exam Limitations: no limitations General appearance: alert, in no apparent distress Head exam: Present: atraumatic, normocephalic, normal inspection Eye exam: Present: normal appearance, PERRL, EOMI. Absent: scleral icterus, conjunctival injection, periorbital swelling Pupils: Present: normal accommodation Neck exam: Present: normal inspection. Absent: tenderness, meningismus, lymphadenopathy Respiratory exam: Present: normal lung sounds bilaterally. Absent: respiratory distress, wheezes, rales, rhonchi, stridor Cardiovascular Exam: Present: regular rate, normal rhythm, normal heart sounds. Absent: systolic murmur, diastolic murmur, rubs, gallop, clicks Extremities exam: Present: normal inspection, full ROM, tenderness (Tibial tuberosity. 2+ dorsalis pedis pulse left. Intact sensation. Equal dorsiflexion and plantarflexion. Limited flexion and knee due to pain. Edema to left knee), normal capillary refill. Absent: pedal edema, joint swelling, calf tenderness Back exam: Present: normal inspection Skin exam: Present: warm, dry, intact, normal color. Absent: rash Course Vital Signs 08/19/23 11:23 Temperature 98.4 F Pulse Rate 89 Respiratory 18 Rate Blood Pressure 148/75 O2 Sat by Pulse 97 Oximetry Medical Decision Making - Medical Decision Making Was pt. sent in by a medical professional or institution ([facility], [facility], urgent care, hospital, or halfway...) When possible be specific @ -No Did you speak to anyone other than the patient for history (EMS, parent, family, police, friend...)? What history was obtained from this source @ -No Did you review nursing and triage notes (agree or disagree)? Why? @ -I reviewed and agree with nursing and triage notes Were old charts reviewed (outside hosp., previous admission, EMS record, old EKG, old radiological studies, urgent care reports/EKG's, halfway records)? Report findings @ -No old charts were reviewed Differential Diagnosis (chest pain, altered mental status, abdominal pain women, abdominal pain men, vaginal bleeding, weakness, fever, dyspnea, syncope, headache, dizziness, GI bleed, back pain, seizure, CVA, palpatations, mental health, musculoskeletal)? @ -Differential Musculoskeletal: Muscular strain, contusion, ligament sprain, fracture, arthritis, septic arthritis, bursitis, cellulitis, muscle spasm, nerve compression, DVT, arterial occlusion, herpes zoster, electrolyte abnormality, tumor.... This is not meant to be in all inclusive list EKG interpreted by me (3pts min.). @ -None X-rays interpreted by me (1pt min.). @ -Left knee x-ray interpreted by me significant for a posterior tibial plateau fracture. CT interpreted by me (1pt min.). @ -None done U/S interpreted by me (1pt. min.). @ -None done What testing was considered but not performed or refused? (CT, X-rays, U/S, labs)? Why? @ -None What meds were considered but not given or refused? Why? @ -Patient refused analgesic medication. Did you discuss the management of the patient with other professionals (professionals i.e. [facility], [facility], lab, RT, psych nurse, administrator social welfare, activities assistant, teacher, title officer, employment evaluator/case manager)? Give summary @ -No Was smoking cessation discussed for >3mins.? @ -No Was critical care preformed (if so, how long)? @ -No Were there social determinants of health that impacted care today? How? (Homelessness, low income, unemployed, alcoholism, drug addiction, transportation, low edu. Level, literacy, decrease access to med. care, halfway, rehab)? @ -No Was there de-escalation of care discussed even if they declined (Discuss DNR or withdrawal of care, Hospice)? DNR status @ -No What co-morbidities impacted this encounter? (DM, HTN, Smoking, COPD, CAD, Cancer, CVA, ARF, Chemo, Hep., AIDS, mental health diagnosis, sleep apnea, morbid obesity)? @ -None Was patient admitted / discharged? Hospital course, mention meds given and route, prescriptions, significant lab abnormalities, going to OR and other pertinent info. @ -Discharge. 57-year-old female presenting to the ER with a chief complaint of left knee injury. History and physical exam completed. Vitals stable. Left lower extremity neurovascular intact. Patient has full active range of motion with extreme pain. X-rays obtained significant for a posterior tibial plateau fracture. Patient refused analgesic medication as she recently took ibuprofen prior to arrival. Results discussed with patient, all questions answered. Patient placed in knee immobilizer and advised to remain nonweightbearing. Patient states she has crutches at home. Advised close follow-up with orthopedics on Tuesday08/22/23, referral given. Tylenol 3 as prescribed for extreme pain. Strict return parameters discussed. Patient discharged in stable condition with follow-up to orthopedics. Patient verbally expressed understanding and agreement with care plan. Case discussed with ED attending, Dr. Thapa. Undiagnosed new problem with uncertain prognosis? @ -No Drug Therapy requiring intensive monitoring for toxicity (Heparin, Nitro, Insulin, Cardizem)? @ -No Were any procedures done? @ -No Diagnosis/symptom? @ -Posterior tibial plateau fracture Acute, or Chronic, or Acute on Chronic? @ -Acute Uncomplicated (without systemic symptoms) or Complicated (systemic symptoms)? @ -Uncomplicated Side effects of treatment? @ -No Exacerbation, Progression, or Severe Exacerbation? @ -No Poses a threat to life or bodily function? How? (Chest pain, USA, VT, pneumonia, PE, COPD, DKA, ARF, appy, cholecystitis, CVA, Diverticulitis, Homicidal, Suicidal, threat to staff... and all critical care pts) @ -No - Radiology Data Radiology results: report reviewed, image reviewed Disposition Clinical Impression: Posterior tibial plateau fracture Disposition: HOME SELF-CARE Condition: Stable Instructions (If sedation given, give patient instructions): Leg Fracture (ED) Additional Instructions: Continue to take ibuprofen and Tylenol for pain control. Tylenol threes have been prescribed for extreme pain only take when needed. Remain non weight bearing. Follow-up with orthopedics on Tuesday morning. Return to the ER for any new or worsening concerns. Prescriptions: Acetaminophen-Codeine 300-30mg [Tylenol #3] 1 tab PO Q4H PRN #20 tablet PRN Reason: pain Is patient prescribed a controlled substance at d/c from ED?: No Referrals: Darrius Cazares [Primary Care Provider] - 1-2 days Ian Maat MD [Medical Doctor] - 1-2 days Time of Disposition: 12:52
--- NOTE | 2023-08-19 12:43 | XR ---
EXAMINATION TYPE: XR knee complete LT DATE OF EXAM: 08/19/2023 12:35 PM CLINICAL INDICATION:Female, 57 years old with history of pain; [facility] COMPARISON: None. TECHNIQUE: XR knee complete LT; examined in Frontal, lateral and oblique projections. FINDINGS/IMPRESSION: Posterior tibial plateau fracture with mild displacement. Mild soft tissue swelling noted. There is n o additional fractures.
[2023-08-19 14:21] VITALS: BP 136/72; PULSE 80; TEMP 98.1
== END 2023-08-19 13:30 | disposition home or self-care (01) ==
LOC: EC 11:22
DX: S82.142A Displaced bicondylar fracture of left tibia, initial encounter for closed fracture (principal); Z87.891 Personal history of nicotine dependence; Z88.8 Allergy status to other drugs, medicaments and biological substances; W11.XXXA Fall on and from ladder, initial encounter
CPT/HCPCS: 99283

== ENCOUNTER 2023-12-12 11:28 | Emergency (ER) | payer MEDICARE ==
--- NOTE | 2023-12-12 12:25 | ED ---
Abdominal Pain HPI - General Chief Complaint: Abdominal Pain Stated Complaint: Kidney stone Time Seen by Provider: 12/12/23 12:06 Source: patient, RN notes reviewed Mode of arrival: wheelchair Limitations: no limitations - History of Present Illness Initial Comments: This is a 57-year-old female who presents to the emergency department for left flank pain. States that it started 5 days ago. Pain does not radiate. She does have associated nausea and vomiting. She has a history of kidney stones, most recently 4 years ago, and states that it feels the same. Denies any fevers or chills. MD Complaint: flank pain - Related Data Home Medications Medication Instructions Recorded Confirmed Adalimumab [Humira] 40 mg SQ FR 05/18/19 01/08/22 Mesalamine [Lialda] 4.8 gm PO AC-SUPPER 05/18/19 01/08/22 DULoxetine HCL [Cymbalta] 30 mg PO BID 06/18/19 01/08/22 Gabapentin [Neurontin] 300 mg PO HS 06/18/19 01/08/22 Leflunomide [Arava] 20 mg PO DAILY 06/18/19 01/08/22 cycloSPORINE 0.05% OPHTH SOLN 1 applicator BOTH EYES Q12H 06/18/19 01/08/22 [Restasis] ALPRAZolam [Xanax] 0.5 mg PO BID PRN 01/06/22 01/08/22 [place] Tab 80 mg PO QAM 01/06/22 01/08/22 Metoprolol Succinate (ER) [Toprol 25 mg PO DAILY 01/06/22 01/08/22 Xl] Previous Rx's Medication Instructions Recorded Cephalexin [Keflex] 500 mg PO Q8HR #15 cap 01/08/22 Ketorolac [Toradol] 10 mg PO Q6HR PRN #15 tab 01/08/22 Acetaminophen-Codeine 300-30mg 1 tab PO Q4H PRN #20 tablet 08/19/23 [Tylenol #3] HYDROcodone/APAP 5-325MG [[place] 1 tab PO Q6HR PRN 3 Days #12 tab 12/12/23 5-325] Ketorolac [Toradol] 10 mg PO Q6HR PRN #15 tab 12/12/23 Ondansetron Odt [Zofran Odt] 4 mg PO Q8HR PRN #15 tab 12/12/23 Tamsulosin [Flomax] 0.4 mg PO DAILY #7 cap 12/12/23 Allergies Allergy/AdvReac Type Severity Reaction Status Date / Time bupropion HCl Allergy Rash/Hives Verified 12/12/23 11:32 [From Wellbutrin] Review of Systems ROS Statement: Those systems with pertinent positive or pertinent negative responses have been documented in the HPI. ROS Other: All systems not noted in ROS Statement are negative. Past Medical History Past Medical History: Fibromyalgia, Hyperlipidemia, Osteoarthritis (OA) Additional Past Medical History / Comment(s): 2 herniated disks in neck, hx. migraines, ulcerative colitis , ankylosing spondylitis, hx kidney stones, History of Any Multi-Drug Resistant Organisms: None Reported Past Surgical History: Section, Orthopedic Surgery, Tubal Ligation Additional Past Surgical History / Comment(s): rt knee surgery, left knee arthroscopy, surgery to remove kidney stones Past Anesthesia/Blood Transfusion Reactions: No Reported Reaction Additional Past Anesthesia/Blood Transfusion Reaction / Comment(s): had spinal with C/S and could feel everything and ended needing a general Past Psychological History: No Psychological Hx Reported Smoking Status: Former smoker Past Alcohol Use History: None Reported Past Drug Use History: None Reported - Past Family History Mother Family Medical History: Cancer General Exam Limitations: no limitations General appearance: alert, in no apparent distress Head exam: Present: atraumatic, normocephalic, normal inspection Respiratory exam: Present: normal lung sounds bilaterally. Absent: respiratory distress, wheezes, rales, rhonchi, stridor Cardiovascular Exam: Present: regular rate, normal rhythm, normal heart sounds. Absent: systolic murmur, diastolic murmur, rubs, gallop, clicks Neurological exam: Present: alert, oriented X3, CN II-XII intact Psychiatric exam: Present: normal affect, normal mood Skin exam: Present: warm, dry, intact, normal color. Absent: rash Course Vital Signs 12/12/23 12/12/23 12/12/23 11:29 13:25 14:44 Temperature 98.8 F 98.3 F 98.1 F Pulse Rate 88 68 76 Respiratory 16 18 18 Rate Blood Pressure 151/74 144/79 127/73 O2 Sat by Pulse 98 99 99 Oximetry Medical Decision Making - Medical Decision Making This is a 57 year old female who presents to the emergency department for left flank pain. Was pt. sent in by a medical professional or institution? @ -No Did you speak to anyone other than the patient for history? @ -No Did you review nursing and triage notes? @ -Yes, and I agree, it is accurate with regards to the patient's symptoms. Were old charts reviewed? @ -No Differential Diagnosis? @ -Differential Flank Pain: UTI, pyelonephritis, kidney stone, musculoskeletal, pancreatitis, cholecystitis, this is not meant to be an all-inclusive list. EKG interpreted by me (3pts min.)? @ -Not obtained X-rays interpreted by me (1pt min.)? @ -Not obtained CT interpreted by me (1pt min.)? @ -CT scan of the abdomen and pelvis obtained. My interpretation identifies a left ureteral calculus. U/S interpreted by me (1pt. min.)? @ -Not obtained What testing was considered but not performed? (CT, X-rays, U/S, labs)? Why? @ -None What meds were considered but not given? Why? @ -None Did you discuss the management of the patient with other professionals? @ -No Did you reconcile home meds? @ -No Was smoking cessation discussed for >3mins.? @ -No Was critical care preformed (if so, how long)? @ -No Were there social determinants of health that impacted care today? How? (Homelessness, low income, unemployed, alcoholism, drug addiction, transporta tion, low edu. Level, literacy, decrease access to med. care, halfway, rehab)? @ -No Was there de-escalation of care discussed even if they declined? (Discuss DNR or withdrawal of care, Hospice)? @ -No What co-morbidities impacted this encounter? (DM, HTN, Smoking, COPD, CAD, Cancer, CVA, Hep., AIDS, mental health diagnosis, sleep apnea, morbid obesity)? @ -None Was patient admitted / discharged? @ -Discharged. Lab work demonstrates mild hypokalemia of 3.3 and was otherwise unremarkable. 40 mEq of K-Dur administered. Urinalysis demonstrates a large amount of blood but is negative for signs of infection. CT scan of the abdomen and pelvis demonstrates a 4 mm calculus in the left UVJ. Symptoms are well- controlled in the emergency department and patient was comfortable with discharge home. Prescription for Toradol, Zofran, [place], and Flomax provided. Information for urology follow-up provided as well. Patient discharged home in stable condition. Case discussed with ED attending, Dr. Mcdermott. Return precautions reviewed in depth, the patient is instructed to return to the emergency department with any new, worsening, or concerning symptoms. Patient verbalized understanding. Undiagnosed new problem with uncertain prognosis? @ -None Drug Therapy requiring intensive monitoring for toxicity (Heparin, Nitro, Insulin, Cardizem)? @ -None Were any procedures done? @ -None Diagnosis/symptom? @ -Left ureteral calculus Acute, or Chronic, or Acute on Chronic? @ -Acute Uncomplicated (without systemic symptoms) or Complicated (systemic symptoms)? @ -Uncomplicated Side effects of treatment? @ -None Exacerbation, Progression, or Severe Exacerbation] @ -Not applicable Poses a threat to life or bodily function? @ -No - Lab Data Result diagrams: 12/12/23 12:25 12/12/23 12:25 Lab Results 12/12/23 12/12/23 12/12/23 Range/Units 12:25 12:25 12:25 WBC 9.7 (3.8-10.6) k/uL RBC 4.67 (3.80-5.40) m/uL Hgb 14.4 (11.4-16.0) gm/dL Hct 43.3 (34.0-46.0) % MCV 92.7 (80.0-100.0) fL MCH 30.9 (25.0-35.0) pg MCHC 33.3 (31.0-37.0) g/dL RDW 12.8 (11.5-15.5) % Plt Count 260 (150-450) k/uL MPV 7.9 Neutrophils % Not Reportable Neutrophils % (Manual) 79 % Lymphocytes % Not Reportable Lymphocytes % (Manual) 15 % Monocytes % Not Reportable Monocytes % (Manual) 4 % Eosinophils % Not Reportable Eosinophils % (Manual) 1 % Basophils % Not Reportable Basophils % (Manual) 1 % Neutrophils # Not Reportable Neutrophils # (Manual) 7.66 (1.3-7.7) k/uL Lymphocytes # Not Reportable Lymphocytes # (Manual) 1.46 (1.0-4.8) k/uL Monocytes # Not Reportable Monocytes # (Manual) 0.39 (0-1.0) k/uL Eosinophils # Not Reportable Eosinophils # (Manual) 0.10 (0-0.7) k/uL Basophils # Not Reportable Basophils # (Manual) 0.10 (0-0.2) k/uL Nucleated RBCs 0 (0-0) /100 WBC Manual Slide Review Performed RBC Morphology Normal Sodium 144 (137-145) mmol/L Potassium 3.3 L (3.5-5.1) mmol/L Chloride 107 (98-107) mmol/L Carbon Dioxide 32 H (22-30) mmol/L Anion Gap 5 mmol/L BUN 12 (7-17) mg/dL Creatinine 0.60 (0.52-1.04) mg/dL Est GFR (CKD-EPI)AfAm >90 (>60 ml/min/1.73 sqM) Est GFR (CKD-EPI)NonAf >90 (>60 ml/min/1.73 sqM) Glucose 100 H (74-99) mg/dL Plasma Lactic Acid Matthew 0.8 (0.7-2.0) mmol/L Calcium 9.1 (8.4-10.2) mg/dL Total Bilirubin 1.0 (0.2-1.3) mg/dL AST 21 (14-36) U/L ALT 11 (4-34) U/L Alkaline Phosphatase 99 (38-126) U/L Total Protein 6.6 (6.3-8.2) g/dL Albumin 4.1 (3.5-5.0) g/dL Amylase 52 (30-110) U/L Lipase 53 (23-300) U/L Urine Color Urine Appearance (Clear) Urine pH (5.0-8.0) Ur Specific [place] (1.001-1.035) Urine Protein (Negative) Urine Glucose (UA) (Negative) Urine Ketones (Negative) Urine Blood (Negative) Urine Nitrite (Negative) Urine Bilirubin (Negative) Urine Urobilinogen (<2.0) mg/dL Ur Leukocyte Esterase (Negative) Urine RBC (0-5) /hpf Urine WBC (0-5) /hpf Ur Squamous Epith Cells (0-4) /hpf Urine Bacteria (None) /hpf Hyaline Casts (0-2) /lpf Urine Mucus (None) /hpf 12/12/23 Range/Units 12:49 WBC (3.8-10.6) k/uL RBC (3.80-5.40) m/uL Hgb (11.4-16.0) gm/dL Hct (34.0-46.0) % MCV (80.0-100.0) fL MCH (25.0-35.0) pg MCHC (31.0-37.0) g/dL RDW (11.5-15.5) % Plt Count (150-450) k/uL MPV Neutrophils % Neutrophils % (Manual) % Lymphocytes % Lymphocytes % (Manual) % Monocytes % Monocytes % (Manual) % Eosinophils % Eosinophils % (Manual) % Basophils % Basophils % (Manual) % Neutrophils # Neutrophils # (Manual) (1.3-7.7) k/uL Lymphocytes # Lymphocytes # (Manual) (1.0-4.8) k/uL Monocytes # Monocytes # (Manual) (0-1.0) k/uL Eosinophils # Eosinophils # (Manual) (0-0.7) k/uL Basophils # Basophils # (Manual) (0-0.2) k/uL Nucleated RBCs (0-0) /100 WBC Manual Slide Review RBC Morphology Sodium (137-145) mmol/L Potassium (3.5-5.1) mmol/L Chloride (98-107) mmol/L Carbon Dioxide (22-30) mmol/L Anion Gap mmol/L BUN (7-17) mg/dL Creatinine (0.52-1.04) mg/dL Est GFR (CKD-EPI)AfAm (>60 ml/min/1.73 sqM) Est GFR (CKD-EPI)NonAf (>60 ml/min/1.73 sqM) Glucose (74-99) mg/dL Plasma Lactic Acid Matthew (0.7-2.0) mmol/L Calcium (8.4-10.2) mg/dL Total Bilirubin (0.2-1.3) mg/dL AST (14-36) U/L ALT (4-34) U/L Alkaline Phosphatase (38-126) U/L Total Protein (6.3-8.2) g/dL Albumin (3.5-5.0) g/dL Amylase (30-110) U/L Lipase (23-300) U/L Urine Color Light Yellow Urine Appearance Clear (Clear) Urine pH 6.0 (5.0-8.0) Ur Specific [place] 1.012 (1.001-1.035) Urine Protein Trace H (Negative) Urine Glucose (UA) Negative (Negative) Urine Ketones Trace H (Negative) Urine Blood Large H (Negative) Urine Nitrite Negative (Negative) Urine Bilirubin Negative (Negative) Urine Urobilinogen <2.0 (<2.0) mg/dL Ur Leukocyte Esterase Trace H (Negative) Urine RBC >182 H (0-5) /hpf Urine WBC 11 H (0-5) /hpf Ur Squamous Epith Cells 1 (0-4) /hpf Urine Bacteria Rare H (None) /hpf Hyaline Casts 1 (0-2) /lpf Urine Mucus Rare H (None) /hpf - Radiology Data Radiology results: report reviewed, image reviewed Disposition Clinical Impression: Left ureteral calculus Disposition: HOME SELF-CARE Instructions (If sedation given, give patient instructions): Renal Colic (ED), Ureteral Stones (ED) Additional Instructions: Return to the emergency department with any new, worsening, or concerning sy mptoms. Take the Toradol with Tylenol as needed for pain relief. If you choose to take the Toradol, do not take any other anti-inflammatories such as ibuprofen, take one or the other. Take the [place] sparingly when your pain is the most severe. Take the Zofran up to every 8 hours as needed for nausea and vomiting. Take the Flomax daily until you pass the kidney stone. Follow up with urology. Prescriptions: Tamsulosin [Flomax] 0.4 mg PO DAILY #7 cap HYDROcodone/APAP 5-325MG [[place] 5-325] 1 tab PO Q6HR PRN 3 Days #12 tab PRN Reason: Pain Ketorolac [Toradol] 10 mg PO Q6HR PRN #15 tab PRN Reason: Pain Ondansetron Odt [Zofran Odt] 4 mg PO Q8HR PRN #15 tab PRN Reason: Nausea And Vomiting Is patient prescribed a controlled substance at d/c from ED?: Yes When asked, does pt state using other controlled substances?: No If prescribed controlled substance>3 days was MAPS reviewed?: Prescribed <3 Days Referrals: Darrius Cazares [Primary Care Provider] - 1-2 days Betrus,Michele, MD [STAFF PHYSICIAN] - 1-2 days Time of Disposition: 14:23
[2023-12-12] MEDS: SODIUM CHLORIDE 0.9% 1,000 ML IV STA (12:26)
[2023-12-12 12:40] LABS: HCT 43.3 % (34.0-46.0); HGB 14.4 gm/dL (11.4-16.0); MCH 30.9 pg (25.0-35.0); MCHC 33.3 g/dL (31.0-37.0); MCV 92.7 fL (80.0-100.0); Mean Platelet Volume 7.9; Platelet Count 260 k/uL (150-450); RBC 4.67 m/uL (3.80-5.40); RDW 12.8 % (11.5-15.5); WBC 9.7 k/uL (3.8-10.6)
[2023-12-12] MEDS: KETOROLAC 15 MG/ML 1 ML VIAL IVP STA (12:46)
[2023-12-12] MEDS: ONDANSETRON 4 MG/2 ML VIAL IVP STA (12:46)
[2023-12-12] MEDS: MORPHINE SULFATE 4 MG/ML SYRINGE IVP STA (12:47)
--- NOTE | 2023-12-12 12:51 | CT ---
EXAMINATION TYPE: CT abdomen pelvis wo con CT DLP: 572.6 mGycm, Automated exposure control for dose reduction was used. DATE OF EXAM: 12/12/2023 12:42 PM COMPARISON: 06/07/2018 CLINICAL INDICATION: Female, 57 years old with history of Left flank pain; Left flank pain x 5 days TECHNIQUE: Axial CT abdomen pelvis wo con;Sagittal and coronal reformats were created on a separate workstation. Contrast used: mL of , (none if empty) Oral contrast used: without Oral Contrast (none if empty) FINDINGS: LOWER CHEST: Unremarkable ABDOMEN LIVER: Unremarkable GALLBLADDER AND BILE DUCTS: Unremarkable. PANCREAS: Unremarkable. SPLEEN: Unremarkable. ADRENAL GLANDS: Unremarkable. KIDNEYS AND URETERS: Mild left hydroureteronephrosis secondary to obstructing 4 mm calculus at the ur eterovesicular junction. Additional nonobstructing tracking renal calculi bilaterally measuring up to 12 mm on the right and 8 mm on the left. Left renal cyst with thin septum with calcification measuring up to 6.4 cm. No right hydronephrosis. PELVIS BLADDER: Unremarkable REPRODUCTIVE: Unremarkable. ABDOMEN & PELVIS STOMACH AND BOWEL: No evidence of bowel obstruction. PERITONEUM/RETROPERITONEUM: No evidence of pneumoperitoneum or free fluid. VASCULATURE: Mild atherosclerotic calcifications are present throughout the abdominal aorta and its b ranches. No evidence of aortic aneurysm. MUSCULOSKELETAL: No acute osseous abnormalities LYMPH NODES: No gross evidence for lymphadenopathy. SOFT TISSUE/ABDOMINAL WALL: Unremarkable IMPRESSION: 1. Mild left hydroureteronephrosis secondary to obstructing 4 mm calculus at the ureterovesicular ju nction. 2. Additional nonobstructing tracking renal calculi bilaterally measuring up to 12 mm on the right a nd 8 mm on the left. 3. Left renal cyst with septation with thin calcification measuring up to 6.4 cm. Calcifications are new from 2019.
[2023-12-12 12:57] LABS: ALT 11 U/L (4-34); AST 21 U/L (14-36); African American GFR (CKD) >90 (>60 ml/min/1.73 sqM); Albumin 4.1 g/dL (3.5-5.0); Alkaline Phosphatase 99 U/L (38-126); Amylase 52 U/L (30-110); Anion Gap 5 mmol/L; Blood Urea Nitrogen 12 mg/dL (7-17); Calcium 9.1 mg/dL (8.4-10.2); Carbon Dioxide 32 mmol/L (22-30); Chloride 107 mmol/L (98-107); Glucose 100 mg/dL (74-99); Lipase 53 U/L (23-300); Non-African American GFR(CKD) >90 (>60 ml/min/1.73 sqM); Potassium 3.3 mmol/L (3.5-5.1); Sodium 144 mmol/L (137-145); Total Protein 6.6 g/dL (6.3-8.2)
[2023-12-12 13:11] LABS: Appearance,Urine Clear (Clear); Bacteria,Urine Rare /hpf; Bilirubin,Urine Negative (Negative); Blood,Urine Large (Negative); Color,Urine Light Yellow; Glucose,Urine (UA) Negative (Negative); Hyaline Casts,Urine 1 /lpf (0-2); Ketones,Urine Trace (Negative); Leukocyte Esterase,Urine Trace (Negative); Mucus,Urine Rare /hpf; Nitrite,Urine Negative (Negative); Protein,Urine Trace (Negative); RBC,Urine >182 /hpf (0-5); Specific Gravity,Urine 1.012 (1.001-1.035); Squamous Epithelial Cell,Urine 1 /hpf (0-4); Urobilinogen,Urine <2.0 mg/dL (<2.0); WBC,Urine 11 /hpf (0-5)
[2023-12-12] MEDS: POTASSIUM CHLORIDE ER 20 MEQ TAB.ER PO STA (13:12)
[2023-12-12 13:28] VITALS: RESP 18
[2023-12-12 13:36] LABS: Lymphocytes # (M) 1.46 k/uL (1.0-4.8); Monocytes # (M) 0.39 k/uL (0-1.0); Neutrophils # (M) 7.66 k/uL (1.3-7.7); Neutrophils % (M) 79 %; Nucleated Red Blood Cells 0 /100 WBC (0-0); RBC Morphology Normal; Total Cells Counted 100
[2023-12-12 14:46] VITALS: BP 127/73; PULSE 76; TEMP 98.1
== END 2023-12-12 14:46 | disposition home or self-care (01) ==
LOC: EC 11:28
DX: N13.2 Hydronephrosis with renal and ureteral calculous obstruction (principal); N28.1 Cyst of kidney, acquired; Z87.891 Personal history of nicotine dependence; Z88.8 Allergy status to other drugs, medicaments and biological substances
CPT/HCPCS: 36415; 80053; 82150; 83605; 83690; 85025; 81001; 87086; 74176; 99284; 96374; 96375 ×2; 96361; J2270; J2405; J1885

== ENCOUNTER → 2023-12-15 | Outpatient (CLI) | payer MEDICARE ==
[2023-12-16 02:33] LABS: HCT 40.7 % (37.2-46.3); HGB 13.5 g/dL (12.0-15.0); MCH 30.6 pg (27.0-32.0); MCHC 33.2 g/dL (32.0-37.0); MCV 92.3 FL (80.0-97.0); Mean Platelet Volume 11.6 FL (9.5-12.2); NRBC Per 100 WBC 0 X 10*3/uL (0.00-0.01); Platelet Count 258 X 10*3/uL (140-440); RBC 4.41 X 10*6/uL (4.10-5.20); RDW 13.1 % (11.5-14.5); WBC 9.41 X 10*3/uL (4.50-10.00)
[2023-12-16 03:04] LABS: AST 24 U/L (13-35)
== END | disposition home or self-care (01) ==
LOC: LABWHC1 13:08
PROVIDERS: ATTEND Specialist
DX: Z79.899 Other long term (current) drug therapy
CPT/HCPCS: 36415; 82565; 84450; 85027; 86480

== ENCOUNTER → 2024-01-02 | Outpatient (CLI) | payer MEDICARE ==
--- NOTE | 2024-01-02 12:46 | XR ---
EXAMINATION TYPE: XR KUB DATE OF EXAM: 01/02/2024 12:30 PM CLINICAL INDICATION: Female, 58 years old with history of N20.0 CALCULUS OF KIDNEY; COMPARISON: 01/08/2022. TECHNIQUE: One radiographic view of the abdomen was obtained. FINDINGS: The bowel gas pattern is nonspecific without dilated loops of small or large bowel. . Fecal material and gas are demonstrated throughout the colon and rectum. There is no evidence for organomegaly or pneumoperitoneum. The osseous structures are intact. Right renal calculi measuring up to 12 mm. No left renal calculus. IMPRESSION: 1. Right renal calculus 2. Nonspecific bowel gas pattern without radiographic evidence for acute process. [facility], , 01/02/2024 12:43 PM
== END | disposition home or self-care (01) ==
LOC: RADXRMAIN 12:12
PROVIDERS: ATTEND Urology
DX: N20.0 Calculus of kidney (principal)
CPT/HCPCS: 74018

== ENCOUNTER → 2024-01-31 | Outpatient (CLI) | payer MEDICARE ==
[2024-01-31 18:50] LABS: Basophils # (A) 0.08 X 10*3/uL (0.00-0.10); Basophils % (A) 0.8 %; Eosinophils # (A) 0.26 X 10*3/uL (0.04-0.35); Eosinophils % (A) 2.5 %; HCT 44.3 % (37.2-46.3); HGB 14.2 g/dL (12.0-15.0); Lymphocytes # (A) 2.37 X 10*3/uL (0.90-5.00); Lymphocytes % (A) 22.8 %; MCH 30.5 pg (27.0-32.0); MCHC 32.1 g/dL (32.0-37.0); MCV 95.3 FL (80.0-97.0); Monocytes # (A) 0.69 X 10*3/uL (0.20-1.00); Monocytes % (A) 6.6 %; NRBC Per 100 WBC 0 X 10*3/uL (0.00-0.01); Neutrophils # (A) 6.96 X 10*3/uL (1.80-7.70); Platelet Count 233 X 10*3/uL (140-440); RBC 4.65 X 10*6/uL (4.10-5.20); RDW 13.2 % (11.5-14.5); WBC 10.39 X 10*3/uL (4.50-10.00)
[2024-01-31 18:54] LABS: Appearance,Urine Clear (Clear); Bilirubin,Urine Negative (Negative); Blood,Urine Large (Negative); Color,Urine Yellow (Yellow); Ketones,Urine Trace (Negative); Nitrite,Urine Negative (Negative); PH, Urine 5.5; Urobilinogen,Urine 0.2 E.U./DL
[2024-01-31 19:18] LABS: Bacteria,Urine Trace (None Seen); Calcium Oxalate Crystals,Urine Present (None Seen)
[2024-01-31 19:50] LABS: Carbon Dioxide 26.1 mmol/L (21.6-31.8); Chloride 107 mmol/L (96-109); Potassium 3.9 mmol/L (3.5-5.5); Sodium 144 mmol/L (135-145)
== END | disposition home or self-care (01) ==
LOC: LABWHC1 14:16
PROVIDERS: ATTEND Urology
DX: N20.0 Calculus of kidney (principal)
CPT/HCPCS: 36415; 80051; 81001; 82565; 85025; 87086

== ENCOUNTER → 2024-02-13 | Outpatient (CLI) | payer MEDICARE ==
--- NOTE | 2024-02-13 15:18 | XR ---
EXAMINATION TYPE: XR KUB DATE OF EXAM: 02/13/2024 2:47 PM COMPARISON: 01/02/2024 CLINICAL INDICATION: Female, 58 years old with history of N20.0 CALCULUS OF KIDNEY; [facility] TECHNIQUE: One radiographic view of the abdomen was obtained. FINDINGS: The bowel gas pattern is nonspecific without dilated loops of small or large bowel. . Fecal material and gas are demonstrated throughout the colon and rectum. There is no evidence for organomegaly or pneumoperitoneum. The osseous structures are intact. Bilat eral renal calculi measuring up to 9 mm on the right and possible 7 mm calculus on the left. IMPRESSION: 1. Bilateral renal calculi suggested. Bowel gas and stool limit evaluation. 2. Nonspecific bowel gas pattern without radiographic evidence for acute process. [facility], , 02/13/2024 3:16 PM
== END | disposition home or self-care (01) ==
LOC: RADXRMAIN 14:29
PROVIDERS: ATTEND Urology
DX: N20.0 Calculus of kidney (principal)
CPT/HCPCS: 74018

== ENCOUNTER → 2024-03-06 | Outpatient (CLI) | payer MEDICARE ==
--- NOTE | 2024-03-06 15:14 | XR ---
EXAMINATION TYPE: XR KUB DATE OF EXAM: 03/06/2024 1:56 PM COMPARISON: [id number] CLINICAL INDICATION: Female, 58 years old with history of N20.0; TECHNIQUE: One radiographic view of the abdomen was obtained. FINDINGS: The bowel gas pattern is nonspecific without dilated loops of small or large bowel. . Fecal material and gas are demonstrated throughout the colon and rectum. There is no evidence for organome peggy or pneumoperitoneum. The osseous structures are intact. Right renal calculi measuring up to 6 mm. IMPRESSION: Nonspecific bowel gas pattern without radiographic evidence for acute process. [facility], Workstation: [email or web address], 03/06/2024 3:12 PM
== END | disposition home or self-care (01) ==
LOC: RADXRMAIN 13:47
PROVIDERS: ATTEND Urology
DX: N20.0 Calculus of kidney (principal)
CPT/HCPCS: 74018

== ENCOUNTER → 2024-03-29 | Outpatient (CLI) | payer MEDICARE ==
[2024-03-29 19:06] LABS: Basophils # (A) 0.08 X 10*3/uL (0.00-0.10); Basophils % (A) 0.9 %; Eosinophils # (A) 0.16 X 10*3/uL (0.04-0.35); Eosinophils % (A) 1.7 %; HCT 43.4 % (37.2-46.3); HGB 14.3 g/dL (12.0-15.0); Lymphocytes # (A) 1.94 X 10*3/uL (0.90-5.00); Lymphocytes % (A) 20.8 %; MCHC 32.9 g/dL (32.0-37.0); Mean Platelet Volume 11.2 FL (9.5-12.2); Monocytes # (A) 0.65 X 10*3/uL (0.20-1.00); NRBC Per 100 WBC 0 X 10*3/uL (0.00-0.01); Neutrophils # (A) 6.44 X 10*3/uL (1.80-7.70); Neutrophils % (A) 69.2 %; Platelet Count 268 X 10*3/uL (140-440); RBC 4.77 X 10*6/uL (4.10-5.20); RDW 13.1 % (11.5-14.5); WBC 9.31 X 10*3/uL (4.50-10.00)
[2024-03-29 19:20] LABS: BUN/Creat Ratio 19.83 Ratio (12.00-20.00); Blood Urea Nitrogen 11.9 mg/dL (9.0-27.0); Calcium 9.1 mg/dL (8.7-10.3); Carbon Dioxide 28.5 mmol/L (21.6-31.8); Chloride 104 mmol/L (96-109); Glucose 100 mg/dL (70-110); Potassium 3.8 mmol/L (3.5-5.5); Sodium 142 mmol/L (135-145)
[2024-03-29 19:54] LABS: Appearance,Urine Clear (Clear); Bilirubin,Urine Negative (Negative); Blood,Urine Small (Negative); Color,Urine Yellow (Yellow); Ketones,Urine Negative (Negative); Nitrite,Urine Negative (Negative); Specific Gravity,Urine 1.012 (1.001-1.030); Urobilinogen,Urine 0.2 E.U./DL
[2024-03-29 20:36] LABS: Bacteria,Urine Trace (None Seen); Calcium Oxalate Crystals,Urine Present (None Seen)
== END | disposition home or self-care (01) ==
LOC: LABPAT 13:58
PROVIDERS: ATTEND Urology
DX: Z01.812 Encounter for preprocedural laboratory examination (principal); N20.0 Calculus of kidney
CPT/HCPCS: 36415; 80048; 81001; 85025; 87086

== ENCOUNTER 2024-04-03 09:57 | Day surgery (SDC) | payer MEDICARE ==
[~2024-04-03 09:57] MED LIST changes: -DEXAMETHASONE SOD PHOSPHATE 4 MG/ML 1 ML VIAL IV ONE; -LACTATED RINGERS 1,000 ML IV SCH; -ONDANSETRON 4 MG/2 ML VIAL IVP ONE; -SCOPOLAMINE 1 MG/72 HR PATCH TRANSDERM ONE; +droPERidol 5 MG/2 ML VIAL IVP ONE
--- NOTE | 2024-04-03 10:22 | XR ---
EXAMINATION TYPE: XR KUB DATE OF EXAM: 04/03/2024 10:07 AM COMPARISON: 03/06/2024 CLINICAL INDICATION: Female, 58 years old with history of N20.0 bilateral renal stone, , FINDINGS: Bilateral renal calculi measuring up to 1.3 cm on the right and 9 mm on the left. Nonobstructive roseann l gas pattern. Mild scattered stool. IMPRESSION: Bilateral nephrolithiasis measuring up to 1.0 cm. [facility], , 04/03/2024 10:20 AM
[2024-04-03] MEDS: IV FLUID CONTINUATION 1,000 ML IV ONE (10:33)
[2024-04-03] MEDS: LACTATED RINGERS 1,000 ML IV SCH (10:42)
[2024-04-03] MEDS: DEXAMETHASONE SOD PHOSPHATE 4 MG/ML 1 ML VIAL IV ONE (10:44)
[2024-04-03] MEDS: ONDANSETRON 4 MG/2 ML VIAL IVP ONE (10:44)
[2024-04-03] MEDS: MIDAZOLAM 2 MG/2 ML VIAL IV ONE (10:47)
--- NOTE | 2024-04-03 11:24 | P.HPIHPCON ---
History of Present Illness H&P Date: 04/03/24 Chief Complaint: Bilateral renal stones This is a 58-year-old female with history of a 1.4 cm right-sided renal stone, underwent ESWL which failed to fragment the stone completely. Repeat KUB showed persistent 1 cm stone and multiple small fragments. Option of repeat ESWL versus ureteroscopy with holmium laser was discussed. She agreed to proceed with a right-sided ureteroscopy with holmium laser of note she also has a 9 mm left-sided renal stone which she is also now symptomatic from. Discussed with her option of doing bilateral ureteroscopy with holmium laser and stent insertion. Aware of the risk which includes but not limited to bleeding, infection, injury to the ureter Consent for Procedure: I have explained the operation/procedure to the patient, including the risks, benefits, side effects, alternative therapies (including not receiving the proposed treatment or service), the likelihood of the patient achieving his/her goals, and potential recuperation problems for the procedure/sedation/analgesia, as well as any blood products, if indicated. I also explained to the patient the risks, benefits and side effects of the alternatives, as well as the risks related to not receiving the proposed procedure, care, treatment, or services. Past Medical History Past Medical History: Fibromyalgia, Hyperlipidemia, Osteoarthritis (OA) Additional Past Medical History / Comment(s): 2 herniated disks in neck, hx. migraines, ulcerative colitis , ankylosing spondylitis, hx kidney stones, History of Any Multi-Drug Resistant Organisms: None Reported Past Surgical History: Section, Orthopedic Surgery, Tubal Ligation Additional Past Surgical History / Comment(s): MARCH 2024, LITHOTRIPSY @ [facility]. Rt knee surgery, left knee arthroscopy, surgery to remove kidney stones Past Anesthesia/Blood Transfusion Reactions: No Reported Reaction Additional Past Anesthesia/Blood Transfusion Reaction / Comment(s): had spinal with C/S and could feel everything and ended needing a general Past Psychological History: No Psychological Hx Reported Smoking Status: Former smoker Past Alcohol Use History: None Reported Additional Past Alcohol Use History / Comment(s): QUIT SMOKING 2011/SMOKED 1 PPD X 20 YEARS Past Drug Use History: None Reported - Past Family History Mother Family Medical History: Cancer Medications and Allergies Home Medications Medication Instructions Recorded Confirmed Type Adalimumab [Humira] 40 mg SQ FR 05/18/19 04/03/24 History Mesalamine [Lialda] 1.2 gm PO AC-SUPPER 05/18/19 04/03/24 History cycloSPORINE 0.05% OPHTH SOLN 1 applicator BOTH EYES Q12H 06/18/19 04/03/24 History [Restasis] Linaclotide [Linzess] 145 mcg PO QAM 03/30/24 04/03/24 History Allergies Allergy/AdvReac Type Severity Reaction Status Date / Time bupropion HCl Allergy Rash/Hives Verified 04/03/24 10:22 [From Wellbutrin] Surgical - Exam Vital Signs Temp Pulse Resp BP Pulse Ox 98.3 F 88 16 130/80 97 04/03/24 10:23 04/03/24 10:23 04/03/24 10:23 04/03/24 10:23 04/03/24 10:23 - General no distress, moderate pain - Eyes normal ocular movement, no pale - ENT normal nares, normal mucosa - Respiratory normal expansion, normal respiratory effort - Abdomen Abdomen: soft, non tender, no distended - Psychiatric oriented to time, oriented to person, oriented to place Assessment and Plan Assessment: OR for bilateral ureteroscopy, holmium laser lithotripsy, stone basketing and stent insertion
[2024-04-03] MEDS ORDERED: KETOROLAC 15 MG/ML 1 ML VIAL ONE (11:32)
[2024-04-03] MEDS ORDERED: PROPOFOL 10 MG/ML 20 ML VIAL IV ONE (11:32)
[2024-04-03] MEDS ORDERED: MIDAZOLAM 2 MG/2 ML VIAL ONE (11:32)
[2024-04-03] MEDS ORDERED: fentaNYL (PF) 50 MCG/ML 2 ML AMP ONE (11:32)
[2024-04-03] MEDS ORDERED: PHENYLEPHRINE-0.9% NACL SYG 1,000 MCG/10 ML SYRINGE ONE (11:32)
[2024-04-03] MEDS ORDERED: LIDOCAINE 1% INJ 10MG/ML (20 ML MDV) ONE (11:32)
[2024-04-03] MEDS: IOHEXOL 350 MG/ML 100 ML in EMPTY BAG 1 BAG IRRIGATION ONE (12:17)
--- NOTE | 2024-04-03 13:08 | FL ---
EXAMINATION TYPE: FL guidance operating room DATE OF EXAM: 04/03/2024 FLUOROSCOPY 100 sec [place] .[address] DAP dose Fluoroscopy during urology intervention for renal stones. One image is submitted. [facility], , 04/03/2024 1:06 PM
[2024-04-03 13:12] VITALS: TEMP 97
--- NOTE | 2024-04-03 13:16 | P.OP ---
Date of Procedure: 04/03/24 Preoperative Diagnosis: Bilateral renal stones Postoperative Diagnosis: Same Procedure(s) Performed: Cystoscopy, bilateral ureteroscopy, holmium laser lithotripsy, stone basketing and stent insertion Implants: 6 Hungarian by 22 cm stents in the bilateral ureters Anesthesia: MONA Surgeon: Axel Medrano Estimated Blood Loss (ml): 5 Pathology: other (Bilateral renal stones) Condition: stable Disposition: PACU Indications for Procedure: This is a 58-year-old female with history of a 1.4 cm right-sided renal stone, underwent ESWL which failed to fragment the stone completely. Repeat KUB showed persistent 1 cm stone and multiple small fragments. Option of repeat ESWL versus ureteroscopy with holmium laser was discussed. She agreed to proceed with a right-sided ureteroscopy with holmium laser of note she also has a 9 mm left-sided renal stone which she is also now symptomatic from. Discussed with her option of doing bilateral ureteroscopy with holmium laser and stent insertion. Aware of the risk which includes but not limited to bleeding, infe ction, injury to the ureter Operative Findings: Large stone in the right upper pole, calcification at the level of the midpole of the kidney, unable to visualize it on renoscopy, large stone in the left renal pelvis Description of Procedure: Patient brought the operating room, general anesthesia was induced. She was prepped and draped in sterile fashion placed in dorsolithotomy position. Cystoscopy fitted with a 21 Hungarian sheath was inserted per urethra cystoscopy was performed showed no abnormality within the bladder. Attention was then c arried to the right ureter orifice which was intubated with a sensor wire. The wire was advanced under fluoroscopy into the kidney. Next an 1113 Hungarian access sheath was passed over the wire into the proximal ureter. Next a flexible ureteroscope was inserted through the access sheath, renoscopy was performed which showed a large stone in the upper pole. Using the holmium laser the stone was dusted, any sizable fragments were removed using the stone basket. At this point a radiopaque density was also seen at the level of the mid pole, multiple attempts using renoscopy was performed to identify the stone butI was unable to. At this time retrograde pyelogram was performed through the ureteroscope, I attempted to identify the calyx going to the stone but was unable to. calcification is most likely to be parenchymal calcification rather than an actual stone. At this time repeat renoscopy showed no injury to the kidney or any sizable fragments. Pullback ureteroscopy was performed showed no injury to the ureter or any ureteral stones, as ureteroscope was withdrawn a sensor wire was advanced through. Next a ureteral stent was passed over the wire, the proximal curl was visualized on fluoroscopy and the distal curl was visualized using the cystoscope. Attention was then carried to the left side, the cystoscope was reinserted per urethra, the left ureter orifice was identified and intubated with a sensor wire, the wire was advanced under fluoroscopy into the kidney. Next an 1113 Hungarian access sheath was advanced over the wire and into the proximal ureter. Next a flexible ureteroscope was inserted through the access sheath, renoscopy was performed showed a large stone in the renal pelvis. Using the holmium laser the stone was dusted, any sizable stone fragments were removed using the stone basket. Repeat renoscopy showed no injury to the kidney or any sizable stone fragments. Pullback ureteroscopy was performed showed no injury to the ureter or any ureteral stones, as ureteroscope was withdrawn a sensor wire was advanced through. Next ureteral stent was passed over the wire, the proximal curl was visualized on fluoroscopy and the distal curl was visualized using the cystoscope. The bladder was emptied at the end the case. Patient tolerated procedure was taken to recovery in stable condition she will follow-up in 1 to 2 weeks for cystoscopy stent removal
[2024-04-03 14:02] VITALS: RESP 18
[2024-04-03 14:17] VITALS: BP 127/73; PULSE 88
== END 2024-04-03 14:29 | disposition home or self-care (01) ==
LOC: OR 09:57
PROVIDERS: ATTEND Urology
DX: N20.0 Calculus of kidney (principal); E78.5 Hyperlipidemia, unspecified; M79.7 Fibromyalgia; K51.90 Ulcerative colitis, unspecified, without complications; M45.9 Ankylosing spondylitis of unspecified sites in spine; M19.90 Unspecified osteoarthritis, unspecified site; Z79.620 Long term (current) use of immunosuppressive biologic; Z79.899 Other long term (current) drug therapy; Z87.891 Personal history of nicotine dependence; Z87.442 Personal history of urinary calculi; Z88.8 Allergy status to other drugs, medicaments and biological substances
CPT/HCPCS: 82365; 74018; 52356; J2250; J1100; J0690; J2405; Q9967

== ENCOUNTER 2024-04-05 19:49 | Observation (INO) | payer MEDICARE ==
--- NOTE | 2024-04-05 20:11 | ED ---
Back Pain HPI - General Source: patient, RN notes reviewed Limitations: no limitations <Priya Carbajal - Last Filed: 04/05/24 20:11> <Dai Muro - Last Filed: 04/09/24 16:21> - General Chief Complaint: Back Pain/Injury Stated Complaint: post-op fever, pain Time Seen by Provider: 04/05/24 20:11 - History of Present Illness Initial Comments: Quick note: 58-year-old female presented to the ER for evaluation of lower back pain. Patient underwent lithotripsy by Dr. Medrano on 04/03/24. Patient reports stents were placed. She states this morning she felt okay and throughout the day she has progressively noticed worsening lower back pain, nausea and high fevers. Admits to hematuria. (Priya Carbajal) Patient is a 58-year-old female history hyperlipidemia, fibromyalgia, recent bilateral ureteral stent placement due to kidney stones presenting today for fever and bilateral flank pain. Patient states has been on oral antibiotics since discharge though unsure of the name of antibiotics. Today patient felt warm and had a temperature 101 at home this afternoon at 4 PM. States she took "something like ibuprofen that they gave me when they discharge me" after measuring her fever. Endorses decreased appetite and nausea but no emesis. Last bowel movement yesterday, no diarrhea black or bloody stools. Endorses bilateral flank pain worse on the left than the right. Initially it hematuria immediately postprocedure however states now has brown urine and dysuria. Denies chest pain or shortness of breath. Endorses chills. 7 out of 10 pain. (Dai Muro) - Related Data Home Medications Medication Instructions Recorded Confirmed Adalimumab [Humira] 40 mg SQ FR 05/18/19 04/06/24 Mesalamine [Lialda] 1.2 gm PO AC-BRKFST 05/18/19 04/06/24 cycloSPORINE 0.05% OPHTH SOLN 1 applicator BOTH EYES HS 06/18/19 04/06/24 [Restasis] Linaclotide [Linzess] 145 mcg PO QAM 03/30/24 04/06/24 Previous Rx's Medication Instructions Recorded Cephalexin [Keflex] 500 mg PO Q8HR #15 cap 04/03/24 Ketorolac [Toradol] 10 mg PO Q6HR PRN #15 tab 04/03/24 Sulfamethox-Tmp 800-160Mg [Bactrim 1 tab PO Q12HR #10 tab 04/07/24 DS 800-160 mg] Allergies Allergy/AdvReac Type Severity Reaction Status Date / Time bupropion HCl Allergy Rash/Hives Verified 04/06/24 08:47 [From Wellbutrin] Review of Systems ROS Other: All systems not noted in ROS Statement are negative. <Priya Carbajal - Last Filed: 04/05/24 20:11> ROS Other: All systems not noted in ROS Statement are negative. <Dai Muro - Last Filed: 04/09/24 16:21> ROS Statement: Those systems with pertinent positive or pertinent negative responses have been documented in the HPI. Past Medical History Past Medical History: Fibromyalgia, Hyperlipidemia, Osteoarthritis (OA) Additional Past Medical History / Comment(s): 2 herniated disks in neck, hx. migraines, ulcerative colitis , ankylosing spondylitis, hx kidney stones, History of Any Multi-Drug Resistant Organisms: None Reported Past Surgical History: Section, Orthopedic Surgery, Tubal Ligation Additional Past Surgical History / Comment(s): rt knee surgery, left knee arthroscopy, surgery to remove kidney stones Past Anesthesia/Blood Transfusion Reactions: No Reported Reaction Additional Past Anesthesia/Blood Transfusion Reaction / Comment(s): had spinal with C/S and could feel everything and ended needing a general Past Psychological History: No Psychological Hx Reported Smoking Status: Current every day smoker Past Alcohol Use History: None Reported Past Drug Use History: None Reported - Past Family History Mother Family Medical History: Cancer <Priya Carbajal - Last Filed: 04/05/24 20:11> General Exam Limitations: no limitations <Priya Carbajal - Last Filed: 04/05/24 20:11> <Dai Muro - Last Filed: 04/09/24 16:21> - General Exam Comments Initial Comments: Visual Physical Exam Vital signs reviewed General: Uncomfortable appearing, nontoxic, no acute distress. Head: Normocephalic, atraumatic Eyes: PERRLA, EOMI ENT: Airway patent Chest: Nonlabored breathing Skin: No visual rash, normal skin tone Neuro: Alert and oriented 3 Musculoskeletal: No gross abnormalities (Priya Carbajal) PE: CONSTITUTIONAL: [no apparent distress, ill-appearing, nontoxic] SKIN: [warm, dry, no jaundice, hives or petechiae] EYES:[ pupils are equally round, extraocular movements intact without nystagmus, clear conjunctiva, non-icteric sclera] HENT: [normocephalic, atraumatic, moist mucus membranes, oropharynx clear without exudates] NECK: , [Full range of motion, normal appearance] PULMONARY: [clear to auscultation without wheezes, rhonchi, or rales, normal excursion, no accessory muscle use and no stridor] CARDIOVASCULAR:[ regular rate, rhythm, normal S1 and S2. No appreciated murmurs, rubs or gallops. Strong radial pulses with intact distal perfusion. No lower extremity edema] GASTROINTESTINAL: [soft, active bowel sounds throughout, no focal /point tenderness, +guarding with palpation of the lower abdomen non-distended, no palpable masses, No hepatosplenomegaly] GENITOURINARY: Bilateral CVA tenderness MUSCULOSKELETAL: [Extremities have no gross deformity, no edema, redness, or swelling. No calf swelling ] NEUROLOGIC: [_a/o x 3, GCS 15, normal mentation and speech. Moves all extremities x 4 without motor or sensory deficit] PSYCHIATRIC:[ _normal mood and affect, thought process is clear and linear] (Dai Muro) Course Vital Signs 04/05/24 04/05/24 04/05/24 19:50 21:34 23:53 Temperature 98.7 F 99.4 F 98.5 F Pulse Rate 92 75 Respiratory 18 15 Rate Blood Pressure 149/77 138/73 O2 Sat by Pulse 97 96 Oximetry 04/06/24 04/06/24 04/06/24 05:43 08:17 11:35 Temperature 97.8 F 98.3 F 98.3 F Pulse Rate 69 72 76 Respiratory 16 18 20 Rate Blood Pressure 116/72 133/73 140/81 O2 Sat by Pulse 96 95 96 Oximetry 04/06/24 04/06/24 04/06/24 14:20 18:19 19:36 Temperature 98.7 F 97.8 F 97.5 F L Pulse Rate 60 72 91 Respiratory 20 16 17 Rate Blood Pressure 121/71 136/80 124/75 O2 Sat by Pulse 98 98 98 Oximetry Medical Decision Making <Priya Carbajal - Last Filed: 04/05/24 20:11> - Lab Data Result diagrams: 04/05/24 20:32 04/05/24 20:32 <GermanDai - Last Filed: 04/09/24 16:21> - Medical Decision Making I performed the quick note portion of this chart. Electronically signed by Priya Carbajal PA-C (Priya Carbajal) Reviewed procedure note from 04/03/2024 when patient cystoscopy bilateral ureteroscopy lithotripsy stone basketing and stent insertion Was pt. sent in by a medical professional or institution ([facility], [employer], urgent care, hospital, or long term...) When possible be specific @ -No Did you speak to anyone other than the patient for history (EMS, parent, family, police, friend...)? What history was obtained from this source @ -No Did you review nursing and triage notes (agree or disagree)? Why? @ -I reviewed nursing and triage notes Were old charts reviewed (outside hosp., previous admission, EMS record, old EKG, old radiological studies, urgent care reports/EKG's, long term records)? Report findings @Medical records reviewed, reviewed KUB from 04/03/2024 which showed bilateral kidney stones, reviewed procedure note from 04/03/2024 when patient cystoscopy bilateral ureteroscopy lithotripsy stone basketing and stent insertio Differential Diagnosis (chest pain, altered mental status, abdominal pain women, abdominal pain men, vaginal bleeding, weakness, fever, dyspnea, syncope, headache, dizziness, GI bleed, back pain, seizure, CVA, palpatations, mental health, musculoskeletal)? Differential Abdominal Pain Women: Appendicitis, Cholecystitis, diverticulosis, ischemic bowel, pancreatitis, hepatitis, UTI, gastroenteritis, A bowel obstruction, constipation, displaced ureteral stents kidney stone, placenta abruption, this is not meant to be an all-inclusive list X-rays interpreted by me (1pt min.). @ -None done CT interpreted by me (1pt min.). I see no evidence of bowel obstruction, free air or other acute process; left renal cyst. U/S interpreted by me (1pt. min.). @ -None done What testing was considered but not performed or refused? (CT, X-rays, U/S, labs)? Why? @ -None What meds were considered but not given or refused? Why? @ -None Did you discuss the management of the patient with other professionals (professionals i.e. , PA, [employer], lab, RT, psych nurse, aids social worker, social service agency director, teacher, principal gifts officer, [employer])? Give summary @ -No Was smoking cessation discussed for >3mins.? @ -No Was critical care preformed (if so, how long)? @ -No Were there social determinants of health that impacted care today? How? (Homelessness, low income, unemployed, alcoholism, drug addiction, transportation, low edu. Level, literacy, decrease access to med. care, retirement, rehab)? @ -No Was there de-escalation of care discussed even if they declined (Discuss DNR or withdrawal of care, Hospice)? @ -No What co-morbidities impacted this encounter? (DM, HTN, Smoking, COPD, CAD, Cancer, CVA, ARF, Chemo, Hep., AIDS, mental health diagnosis, sleep apnea, morbid obesity)? @ -None Was patient admitted / discharged? Hospital course, mention meds given and route, prescriptions, significant lab abnormalities, going to OR and other pertinent info. @Admission Patient is a 58-year-old female with past medical history bilateral ureteral stent placement on 04/03/2024 due to kidney stones, presenting today for 1 day of malaise, fever chills, decreased appetite and bilateral flank pain. Patient afebrile on arrival, on my assessment she is resting comfortably in hallway bed though does appear uncomfortable when moving. Abdomen soft with mild guarding throughout but no focal tenderness, though does have bilateral CVA tenderness worse on the left than the right. Reviewed ATP labs mild leukocytosis white blood count 12.9, no elevated lactic however urine does show positive leukocyte esterase, white blood cells and red blood cells negative nitrites. Due to patient's fever at home, flank pain post procedure will give her dose of cefe pime and anticipate admission, will discuss with Dr. Baldwin, urology security solutions engineer. Due to patient's leukocytosis, new abdominal pain, fever, will obtain cT abdomen/pelvis as well. CT read as no evidence for acute intra-abdominal process, bilateral ureteral stents appear in appropriate position, mild dilation of the collecting systems, nonobstructing calculi bilaterally, correlate with urinalysis regarding possibility of UTI, left cortical renal cyst with thin septation and calcification. Case discussed Dr. Baldwin, kindly accepts patient for admission. Undiagnosed new problem with uncertain prognosis? @ -No Drug Therapy requiring intensive monitoring for toxicity (Heparin, Nitro, Insulin, Cardizem)? @ -No Were any procedures done? @ -No Diagnosis/symptom? @Postop fever, urinary tract infection Acute, or Chronic, or Acute on Chronic? @Acute Uncomplicated (without systemic symptoms) or Complicated (systemic symptoms)? @Complicated Side effects of treatment? @ -No Exacerbation, Progression, or Severe Exacerbation? @ -No Poses a threat to life or bodily function? How? (Chest pain, [place], [place], pneumonia, PE, COPD, DKA, ARF, appy, cholecystitis, CVA, Diverticulitis, Homicidal, Suicidal, threat to staff... and all critical care pts) @Potentially, if left untreated could lead to urosepsis and septic shock (Dai Muro) - Lab Data Lab Results 04/05/24 04/05/24 04/05/24 Range/Units 20:32 20:32 20:32 WBC 12.9 H (3.8-10.6) k/uL RBC 4.68 (3.80-5.40) m/uL Hgb 14.3 (11.4-16.0) gm/dL Hct 42.1 (34.0-46.0) % MCV 89.9 (80.0-100.0) fL MCH 30.6 (25.0-35.0) pg MCHC 34.1 (31.0-37.0) g/dL RDW 13.2 (11.5-15.5) % Plt Count 246 (150-450) k/uL MPV 8.3 Neutrophils % (Manual) 77 % Lymphocytes % (Manual) 18 % Monocytes % (Manual) 5 % Neutrophils # (Manual) 9.93 H (1.3-7.7) k/uL Lymphocytes # (Manual) 2.32 (1.0-4.8) k/uL Monocytes # (Manual) 0.65 (0-1.0) k/uL Nucleated RBCs 0 (0-0) /100 WBC Manual Slide Review Performed Sodium 139 (137-145) mmol/L Potassium 4.0 (3.5-5.1) mmol/L Chloride 104 (98-107) mmol/L Carbon Dioxide 25 (22-30) mmol/L Anion Gap 10 mmol/L BUN 18 H (7-17) mg/dL Creatinine 0.83 (0.52-1.04) mg/dL Est GFR (CKD-EPI)AfAm >90 (>60 ml/min/1.73 sqM) Est GFR (CKD-EPI)NonAf 80 (>60 ml/min/1.73 sqM) Glucose 101 H (74-99) mg/dL Plasma Lactic Acid Matthew 0.8 (0.7-2.0) mmol/L Calcium 9.3 (8.4-10.2) mg/dL Total Bilirubin 0.8 (0.2-1.3) mg/dL AST 22 (14-36) U/L ALT 15 (4-34) U/L Alkaline Phosphatase 88 (38-126) U/L Total Protein 6.8 (6.3-8.2) g/dL Albumin 4.3 (3.5-5.0) g/dL Urine Color Urine Appearance (Clear) Urine pH (5.0-8.0) Ur Specific Partridge (1.001-1.035) Urine Protein (Negative) Urine Glucose (UA) (Negative) Urine Ketones (Negative) Urine Blood (Negative) Urine Nitrite (Negative) Urine Bilirubin (Negative) Urine Urobilinogen (<2.0) mg/dL Ur Leukocyte Esterase (Negative) Urine RBC (0-5) /hpf Urine WBC (0-5) /hpf Ur Squamous Epith Cells (0-4) /hpf Urine Mucus (None) /hpf 04/05/24 Range/Units 20:35 WBC (3.8-10.6) k/uL RBC (3.80-5.40) m/uL Hgb (11.4-16.0) gm/dL Hct (34.0-46.0) % MCV (80.0-100.0) fL MCH (25.0-35.0) pg MCHC (31.0-37.0) g/dL RDW (11.5-15.5) % Plt Count (150-450) k/uL MPV Neutrophils % (Manual) % Lymphocytes % (Manual) % Monocytes % (Manual) % Neutrophils # (Manual) (1.3-7.7) k/uL Lymphocytes # (Manual) (1.0-4.8) k/uL Monocytes # (Manual) (0-1.0) k/uL Nucleated RBCs (0-0) /100 WBC Manual Slide Review Sodium (137-145) mmol/L Potassium (3.5-5.1) mmol/L Chloride (98-107) mmol/L Carbon Dioxide (22-30) mmol/L Anion Gap mmol/L BUN (7-17) mg/dL Creatinine (0.52-1.04) mg/dL Est GFR (CKD-EPI)AfAm (>60 ml/min/1.73 sqM) Est GFR (CKD-EPI)NonAf (>60 ml/min/1.73 sqM) Glucose (74-99) mg/dL Plasma Lactic Acid Matthew (0.7-2.0) mmol/L Calcium (8.4-10.2) mg/dL Total Bilirubin (0.2-1.3) mg/dL AST (14-36) U/L ALT (4-34) U/L Alkaline Phosphatase (38-126) U/L Total Protein (6.3-8.2) g/dL Albumin (3.5-5.0) g/dL Urine Color Red Urine Appearance Turbid H (Clear) Urine pH 6.0 (5.0-8.0) Ur Specific Partridge 1.020 (1.001-1.035) Urine Protein 2+ H (Negative) Urine Glucose (UA) Negative (Negative) Urine Ketones Negative (Negative) Urine Blood Large H (Negative) Urine Nitrite Negative (Negative) Urine Bilirubin Negative (Negative) Urine Urobilinogen <2.0 (<2.0) mg/dL Ur Leukocyte Esterase Large H (Negative) Urine RBC >182 H (0-5) /hpf Urine WBC 27 H (0-5) /hpf Ur Squamous Epith Cells 3 (0-4) /hpf Urine Mucus Occasional H (None) /hpf Disposition <Priya Carbajal - Last Filed: 04/05/24 20:11> <Dai Muro - Last Filed: 04/09/24 16:21> Clinical Impression: Complicated urinary tract infection Disposition: ADMITTED IP TO THIS HOSP Condition: Good
[2024-04-05 20:40] LABS: HCT 42.1 % (34.0-46.0); HGB 14.3 gm/dL (11.4-16.0); MCH 30.6 pg (25.0-35.0); MCHC 34.1 g/dL (31.0-37.0); MCV 89.9 fL (80.0-100.0); Mean Platelet Volume 8.3; Platelet Count 246 k/uL (150-450); RBC 4.68 m/uL (3.80-5.40); RDW 13.2 % (11.5-15.5); WBC 12.9 k/uL (3.8-10.6)
[2024-04-05 20:49] LABS: Appearance,Urine Turbid (Clear); Bilirubin,Urine Negative (Negative); Blood,Urine Large (Negative); Color,Urine Red; Glucose,Urine (UA) Negative (Negative); Ketones,Urine Negative (Negative); Leukocyte Esterase,Urine Large (Negative); Mucus,Urine Occasional /hpf; Nitrite,Urine Negative (Negative); Protein,Urine 2+ (Negative); RBC,Urine >182 /hpf (0-5); Squamous Epithelial Cell,Urine 3 /hpf (0-4); Urobilinogen,Urine <2.0 mg/dL (<2.0); WBC,Urine 27 /hpf (0-5)
[2024-04-05 21:11] LABS: ALT 15 U/L (4-34); AST 22 U/L (14-36); African American GFR (CKD) >90 (>60 ml/min/1.73 sqM); Albumin 4.3 g/dL (3.5-5.0); Alkaline Phosphatase 88 U/L (38-126); Anion Gap 10 mmol/L; Blood Urea Nitrogen 18 mg/dL (7-17); Calcium 9.3 mg/dL (8.4-10.2); Carbon Dioxide 25 mmol/L (22-30); Chloride 104 mmol/L (98-107); Glucose 101 mg/dL (74-99); Lymphocytes # (M) 2.32 k/uL (1.0-4.8); Monocytes # (M) 0.65 k/uL (0-1.0); Neutrophils # (M) 9.93 k/uL (1.3-7.7); Neutrophils % (M) 77 %; Non-African American GFR(CKD) 80 (>60 ml/min/1.73 sqM); Nucleated Red Blood Cells 0 /100 WBC (0-0); Sodium 139 mmol/L (137-145); Total Bilirubin 0.8 mg/dL (0.2-1.3); Total Cells Counted 100; Total Protein 6.8 g/dL (6.3-8.2)
[2024-04-05] MEDS: ACETAMINOPHEN TAB 500 MG TAB PO STA (21:41)
[2024-04-05] MEDS: MORPHINE SULFATE 4 MG/ML SYRINGE IVP STA (21:42)
[2024-04-05] MEDS: SODIUM CHLORIDE 0.9% 1,000 ML IV ONE (21:44)
[2024-04-05] MEDS: ONDANSETRON 4 MG/2 ML VIAL IVP STA (21:45)
[2024-04-05] MEDS: CEFEPIME 2 GM in SODIUM CHLORIDE 0.9% 100 ML IVPB STA (21:45)
--- NOTE | 2024-04-05 22:06 | CT ---
EXAMINATION TYPE: CT abdomen pelvis w con DATE OF EXAM: 04/05/2024 10:02 PM COMPARISON: CT abdomen pelvis most recent from 12/12/2023 CLINICAL INDICATION: Female, 58 years old with history of Bilat flank pain L>R, fever, recent uretera l stent; post op back pain and fever after having kidney stones removed on 03/27/24. TECHNIQUE: Axial CT abdomen pelvis w con;Sagittal and coronal reformats were created on a separate w orkstation. Contrast used:100ml mL of Isovue 300 with IV Contrast, (none if empty) Oral contrast used: without Oral Contrast (none if empty) CT DLP: 879.4 mGycm, Automated exposure control for dose reduction was used. FINDINGS: LOWER CHEST: Unremarkable ABDOMEN LIVER: Unremarkable GALLBLADDER AND BILE DUCTS: Unremarkable. PANCREAS: Unremarkable. SPLEEN: Unremarkable. ADRENAL GLANDS: Unremarkable. KIDNEYS AND URETERS: Bilateral ureteral stents present. Proximal and distal portions appear in approp riate position. There remains mild dilation of the collecting systems. Nonobstructing renal calculi b ilaterally. Left renal cortical cyst present with thin cortical septation with calcification measurin g up to 7.4 cm. Focus of gas seen within the left renal collecting system compatible with recent inte rvention. PELVIS BLADDER: No evidence for wall thickening or mass given limitations of exam. REPRODUCTIVE: Unremarkable. ABDOMEN & PELVIS STOMACH AND BOWEL: No evidence of bowel obstruction. PERITONEUM/RETROPERITONEUM: No evidence of pneumoperitoneum or free fluid. VASCULATURE: Mild atherosclerotic calcifications are present throughout the abdominal aorta and its b ranches. No evidence of aortic aneurysm. MUSCULOSKELETAL: No acute osseous abnormalities LYMPH NODES: No gross evidence for lymphadenopathy. SOFT TISSUE/ABDOMINAL WALL: Unremarkable IMPRESSION: 1. No evidence for acute abdominal process. 2. Bilateral ureteral stents present. Proximal and distal portions appear in appropriate position. T here remains mild dilation of the collecting systems. Nonobstructing renal calculi bilaterally. Corre late with urinalysis regarding possibility of urinary tract infection.. 3. Left cortical renal cyst with thin septation with calcification. [facility], , 04/05/2024 10:04 PM
[2024-04-05] MEDS ORDERED: KETOROLAC 15 MG/ML 1 ML VIAL IVP PRN (22:18)
[2024-04-05] MEDS ORDERED: NALOXONE 0.4 MG/ML 1 ML VIAL IV PRN (22:18)
[2024-04-05] MEDS ORDERED: MORPHINE SULFATE 4 MG/ML SYRINGE IV PRN (22:18)
[2024-04-05] MEDS ORDERED: CALCIUM CARBONATE 500 MG CHEWABLE PO PRN (22:18)
[2024-04-05] MEDS ORDERED: MAG HYDROX/AL HYDROX/SIMETH 30 ML CUP PO PRN (22:18)
[2024-04-05] MEDS: DEXTROSE 5%-0.45% NACL 1,000 ML IV SCH (23:13)
[2024-04-06] MEDS: FAMOTIDINE 20 MG TAB PO SCH (08:19)
[2024-04-06] MEDS: ACETAMINOPHEN TAB 325 MG TAB PO PRN (11:36)
[2024-04-06] MEDS: ONDANSETRON 4 MG/2 ML VIAL IVP PRN (11:38)
--- NOTE | 2024-04-06 12:46 | P.GSHP ---
History of Present Illness H&P Date: 04/06/24 Chief Complaint: Fever This is a 58-year-old female with history of a 1.4 cm right-sided renal stone, underwent ESWL which failed to fragment the stone completely. Repeat KUB showed persistent 1 cm stone and multiple small fragments. She thus chose to undergo ureteroscopic removal of that calculus along with a 9 mm left renal calculus. This was performed on April 03, 2024. She presented to the ER yesterday with complaints of bilateral low back pain, fever, and nausea. CT scan shows no evidence of urine extravasation, and the stents are well-positioned. She rece ived a dose of cefepime in the ER and is feeling much better this morning. - Constitutional Constitutional: Reports fever - Gastrointestinal Gastrointestinal: Reports nausea - Genitourinary (Female) Genitourinary: Reports flank pain, Reports hematuria, Reports kidney stones Past Medical History Past Medical History: Fibromyalgia, Hyperlipidemia, Osteoarthritis (OA) Additional Past Medical History / Comment(s): 2 herniated disks in neck, hx. migraines, ulcerative colitis , ankylosing spondylitis, hx kidney stones, History of Any Multi-Drug Resistant Organisms: None Reported Past Surgical History: Section, Orthopedic Surgery, Tubal Ligation Additional Past Surgical History / Comment(s): rt knee surgery, left knee arthroscopy, surgery to remove kidney stones Past Anesthesia/Blood Transfusion Reactions: No Reported Reaction Additional Past Anesthesia/Blood Transfusion Reaction / Comment(s): had spinal with C/S and could feel everything and ended needing a general Past Psychological History: No Psychological Hx Reported Smoking Status: Current every day smoker Past Alcohol Use History: None Reported Past Drug Use History: None Reported - Past Family History Mother Family Medical History: Cancer Medications and Allergies Home Medications Medication Instructions Recorded Confirmed Type Adalimumab [Humira] 40 mg SQ FR 05/18/19 04/06/24 History Mesalamine [Lialda] 1.2 gm PO AC-BRKFST 05/18/19 04/06/24 History cycloSPORINE 0.05% OPHTH SOLN 1 applicator BOTH EYES HS 06/18/19 04/06/24 History [Restasis] Linaclotide [Linzess] 145 mcg PO QAM 03/30/24 04/06/24 History Cephalexin [Keflex] 500 mg PO Q8HR #15 cap 04/03/24 04/06/24 Rx Ketorolac [Toradol] 10 mg PO Q6HR PRN #15 tab 04/03/24 04/06/24 Rx Allergies Allergy/AdvReac Type Severity Reaction Status Date / Time bupropion HCl Allergy Rash/Hives Verified 04/06/24 08:47 [From Wellbutrin] Surgical - Exam Vital Signs Temp Pulse Resp BP Pulse Ox 98.7 F 92 18 149/77 97 04/05/24 19:50 04/05/24 19:50 04/05/24 19:50 04/05/24 19:50 04/05/24 19:50 - General well developed, well nourished, no distress - Respiratory normal respiratory effort - Abdomen Abdomen: soft, non tender, no guarding, no rigid, no rebound - Psychiatric oriented to time, oriented to person, oriented to place, speech is normal, memory intact Results - Labs 04/05/24 20:32 04/05/24 20:32 Abnormal Lab Results - Last 24 Hours (Table) 04/05/24 04/05/24 04/05/24 Range/Units 20:32 20:32 20:35 WBC 12.9 H (3.8-10.6) k/uL Neutrophils # (Manual) 9.93 H (1.3-7.7) k/uL BUN 18 H (7-17) mg/dL Glucose 101 H (74-99) mg/dL Urine Appearance Turbid H (Clear) Urine Protein 2+ H (Negative) Urine Blood Large H (Negative) Ur Leukocyte Esterase Large H (Negative) Urine RBC >182 H (0-5) /hpf Urine WBC 27 H (0-5) /hpf Urine Mucus Occasional H (None) /hpf Diabetes panel 04/05/24 Range/Units 20:32 Sodium 139 (137-145) mmol/L Potassium 4.0 (3.5-5.1) mmol/L Chloride 104 (98-107) mmol/L Carbon Dioxide 25 (22-30) mmol/L BUN 18 H (7-17) mg/dL Creatinine 0.83 (0.52-1.04) mg/dL Glucose 101 H (74-99) mg/dL Calcium 9.3 (8.4-10.2) mg/dL AST 22 (14-36) U/L ALT 15 (4-34) U/L Alkaline Phosphatase 88 (38-126) U/L Total Protein 6.8 (6.3-8.2) g/dL Albumin 4.3 (3.5-5.0) g/dL Calcium panel 04/05/24 Range/Units 20:32 Calcium 9.3 (8.4-10.2) mg/dL Albumin 4.3 (3.5-5.0) g/dL Pituitary panel 04/05/24 Range/Units 20:32 Sodium 139 (137-145) mmol/L Potassium 4.0 (3.5-5.1) mmol/L Chloride 104 (98-107) mmol/L Carbon Dioxide 25 (22-30) mmol/L BUN 18 H (7-17) mg/dL Creatinine 0.83 (0.52-1.04) mg/dL Glucose 101 H (74-99) mg/dL Calcium 9.3 (8.4-10.2) mg/dL Adrenal panel 04/05/24 Range/Units 20:32 Sodium 139 (137-145) mmol/L Potassium 4.0 (3.5-5.1) mmol/L Chloride 104 (98-107) mmol/L Carbon Dioxide 25 (22-30) mmol/L BUN 18 H (7-17) mg/dL Creatinine 0.83 (0.52-1.04) mg/dL Glucose 101 H (74-99) mg/dL Calcium 9.3 (8.4-10.2) mg/dL Total Bilirubin 0.8 (0.2-1.3) mg/dL AST 22 (14-36) U/L ALT 15 (4-34) U/L Alkaline Phosphatase 88 (38-126) U/L Total Protein 6.8 (6.3-8.2) g/dL Albumin 4.3 (3.5-5.0) g/dL - Imaging CT scan - abdomen: report reviewed, image reviewed Assessment and Plan (1) Complicated urinary tract infection Current Visit: Yes Status: Acute Code(s): N39.0 - URINARY TRACT INFECTION, SITE NOT SPECIFIED SNOMED Code(s): 85109837 (2) Calculus of kidney Current Visit: Yes Status: Acute Code(s): N20.0 - CALCULUS OF KIDNEY SNOMED Code(s): 82592770 Plan: The patient will be treated with IV hydration and ceftriaxone, pending the urine culture result.
[2024-04-06] MEDS: ADALIMUMAB SQ SCH (13:04)
[2024-04-06] MEDS ORDERED: CEPHALEXIN 500 MG CAP PO SCH (16:00)
[2024-04-06] MEDS: cycloSPORINE 0.05% OPHTH 0.4 ML DROPERETTE BOTH EYES SCH (21:14)
[2024-04-06 23:13] LABS: Glucose,Whole Blood 100 mg/dL (70-110)
[2024-04-07 05:53] LABS: Glucose,Whole Blood 118 mg/dL (70-110)
[2024-04-07] MEDS: BALSALAZIDE DISODIUM 750 MG CAPSULE PO SCH (06:20)
[2024-04-07 07:12] VITALS: BP 139/73; PULSE 69; RESP 16; TEMP 98.3
[2024-04-07] MEDS: PATIENT'S OWN (Linaclotide [Linzess] 145 MCG Capsule) PO SCH (08:37)
--- NOTE | 2024-04-07 12:42 | P.DS ---
Providers Date of admission: 04/05/24 22:18 Expected date of discharge: 04/07/24 Attending physician: Michele Baldwin Primary care physician: Darrius Centeno Kut - Discharge Diagnosis(es) (1) Complicated urinary tract infection Current Visit: Yes Status: Acute (2) Calculus of kidney Current Visit: Yes Status: Acute Hospital Course: This is a 58-year-old female with history of a 1.4 cm right-sided renal stone, underwent ESWL which failed to fragment the stone completely. Repeat KUB showed persistent 1 cm stone and multiple small fragments. She thus chose to undergo ureteroscopic removal of that calculus along with a 9 mm left renal calculus. This was performed on April 03, 2024. She presented to the ER on April 05, 2024 with complaints of bilateral low back pain, fever, and nausea. CT scan showed no evidence of urine extravasation, and the stents were well-positioned. She was admitted and treated with IV antibiotics. Her fever resolved and she was feeling well at the time of discharge. Urine culture obtained at the time of admission was negative. Patient Condition at Discharge: Good Plan - Discharge Summary Discharge Rx Participant: Yes New Discharge Prescriptions: New Sulfamethox-Tmp 800-160Mg [Bactrim DS 800-160 mg] 1 tab PO Q12HR #10 tab No Action Adalimumab [Humira] 40 mg SQ FR Mesalamine [Lialda] 1.2 gm PO AC-BRKFST cycloSPORINE 0.05% OPHTH SOLN [Restasis] 1 applicator BOTH EYES HS Linaclotide [Linzess] 145 mcg PO QAM Ketorolac [Toradol] 10 mg PO Q6HR PRN #15 tab PRN Reason: Pain Cephalexin [Keflex] 500 mg PO Q8HR #15 cap Discharge Medication List Adalimumab [Humira] 40 mg SQ FR 05/18/19 [History] Mesalamine [Lialda] 1.2 gm PO AC-BRKFST 05/18/19 [History] cycloSPORINE 0.05% OPHTH SOLN [Restasis] 1 applicator BOTH EYES HS 06/18/19 [History] Linaclotide [Linzess] 145 mcg PO QAM 03/30/24 [History] Cephalexin [Keflex] 500 mg PO Q8HR #15 cap 04/03/24 [Rx] Ketorolac [Toradol] 10 mg PO Q6HR PRN #15 tab 04/03/24 [Rx] Sulfamethox-Tmp 800-160Mg [Bactrim DS 800-160 mg] 1 tab PO Q12HR #10 tab 04/07/24 [Rx] Follow up Appointment(s)/Referral(s): Darrius Cazares [Primary Care Provider] - 1-2 days Axel Medrano MD [STAFF PHYSICIAN] - 04/12/24 Activity/Diet/Wound Care/Special Instructions: Diet and activity as tolerated. A prescription was sent for Bactrim DS (she should not take Keflex). Discharge Disposition: HOME SELF-CARE
== END 2024-04-07 13:03 | disposition home or self-care (01) ==
LOC: EC 19:49 → 6NMEDSUR 22:18
PROVIDERS: ADMIT Urology; ATTEND Urology
DX: N39.0 Urinary tract infection, site not specified (principal); N20.0 Calculus of kidney; E78.5 Hyperlipidemia, unspecified; F17.200 Nicotine dependence, unspecified, uncomplicated; Z87.442 Personal history of urinary calculi; Z79.899 Other long term (current) drug therapy
CPT/HCPCS: 96366; 96376; 96365; 96367; 96375; 99285; 36415; 80053; 83605; 85025; 81001; 87086; 74177; G0378 ×3; J2270; J2405 ×2; J0696 ×2; J0692; Q9967

== ENCOUNTER → 2024-10-18 | Outpatient (CLI) | payer MEDICARE ==
--- NOTE | 2024-10-19 09:27 | MR ---
EXAMINATION TYPE: MR sacroiliac joints wo/w con DATE OF EXAM: 10/18/2024 5:52 PM COMPARISON: None . CLINICAL INDICATION: Female, 58 years old with history of M45.9 ANKYLOSING SPONDYLITIS OF UNSPECIFIED SITES; PHH, Low back pain, sacroilits TECHNIQUE: Triplane multisequence imaging was performed of the pelvis. IV Contrast: 8 mL Gadobutrol FINDINGS: Reproductive: Vagina: Unremarkable. Uterus: endometrium within normal limits. C-sections scar is thought to be present correlate clinical ly. Ovaries: Unremarkable Bladder: Unremarkable. Bowel: Unremarkable as visualized. Peritoneum: No free fluid or adenopathy. Lymph nodes: No evidence of adenopathy. Vasculature: Unremarkable. Musculoskeletal: Bone marrow signal is within normal signal intensity. Mild degeneration changes of t he sacroiliac joints with small osteophytes present. No active inflammation STIR imaging. Abdominal wall/soft tissues: Unremarkable. IMPRESSION: Mild degeneration changes of the sacroiliac joints. No evidence for bony edema to suggest active infl ammation. [facility], , 10/19/2024 9:25 AM
== END | disposition home or self-care (01) ==
LOC: RADMRIMAIN 16:49
PROVIDERS: ATTEND Specialist
DX: M53.3 Sacrococcygeal disorders, not elsewhere classified (principal); M45.9 Ankylosing spondylitis of unspecified sites in spine
CPT/HCPCS: 72197; A9585